=== PATIENT | female | born 1945 | race Caucasian/White ===

== ENCOUNTER 2021-06-01 17:22 | Emergency (ER) | payer MEDICARE, SELFPAY ==
--- NOTE | ~2021-06-01 | XR_ITS ---
EXAMINATION: CHEST X-RAY AND LEFT FOOT. CLINICAL INFORMATION: Left great toe pain and swelling. COMPARISON: None TECHNIQUE: Left foot 3 views. Chest one view. FINDINGS: CHEST: The lungs are hypoexpanded with patchy opacity seen along the lingula and the right midlung. Rest of lungs are clear. The heart size and pulmonary vascularity is normal. There is moderate spondylosis dorsal spine. LEFT FOOT: There is diffuse osteopenia. No acute fracture or dislocation seen. The ankle mortise and subtalar joints are normal. There is a small calcaneal heel enthesophyte. There is mild left foot soft tissue swelling. XR/XR foot LT 2V IMPRESSION: Hypoexpanded lungs with patchy opacity left lingula and right midlung question developing infiltrate. Significant osteopenia without fracture. However there is mild left foot soft tissue swelling. Question reflux sympathetic dystrophy from nonuse.
--- NOTE | ~2021-06-01 | XR_ITS ---
EXAMINATION: CHEST X-RAY AND LEFT FOOT. CLINICAL INFORMATION: Left great toe pain and swelling. COMPARISON: None TECHNIQUE: Left foot 3 views. Chest one view. FINDINGS: CHEST: The lungs are hypoexpanded with patchy opacity seen along the lingula and the right midlung. Rest of lungs are clear. The heart size and pulmonary vascularity is normal. There is moderate spondylosis dorsal spine. LEFT FOOT: There is diffuse osteopenia. No acute fracture or dislocation seen. The ankle mortise and subtalar joints are normal. There is a small calcaneal heel enthesophyte. There is mild left foot soft tissue swelling. XR/XR chest 1V IMPRESSION: Hypoexpanded lungs with patchy opacity left lingula and right midlung question developing infiltrate. Significant osteopenia without fracture. However there is mild left foot soft tissue swelling. Question reflux sympathetic dystrophy from nonuse.
[2021-06-01 17:36] VITALS: BP 142/98; BP 160/89; PULSE 103; PULSE 108; RESP 20; TEMP 37.7; O2SAT 96; O2SAT 97; BMI 32.9
--- NOTE | 2021-06-01 17:43 | ED_ITS ---
HPI - General Adult General Chief complaint: Skin/Abscess/Foreign Body Stated complaint: foot infection Time Seen by Provider: 06/01/21 17:36 Source: family Mode of arrival: EMS Limitations: altered mental status History of Present Illness HPI narrative: Patient with history of dementia And arthritis comes here with left greater toe inflammation secondary to ingrown toenail for last 1 week for last 2 days patient been having fever temperature 103 degrees patient not vaccinated against COVID denies any cough shortness of breath no abdominal pain no urinary complaints no vomiting no diarrhea Related Data Previous Rx's Medication Instructions Recorded cefuroxime axetil 500 mg tablet 500 mg PO BID #20 tab 06/01/21 doxycycline hyclate 100 mg tablet 100 mg PO BID #20 tab 06/01/21 Allergies Allergy/AdvReac Type Severity Reaction Status Date / Time sertraline Allergy Unknown aggression Verified 08/04/18 00:00 No Known Allergies Allergy Unverified 05/15/20 17:52 [No Known Allergies*] memantine [Namenda] AdvReac Unknown headaches Verified 08/04/18 00:00 Review of Systems Review of Systems: Yes all other systems are reviewed and are negative [facility] Past Medical History Medical History Alzheimer disease Arthritis Dementia Social History Social History Smoked in Last 30 Days: No Use of substances other than those prescribed or required for medical reasons: No Advance Directives: No Advance Directives Information Provided: No Physical Exam Vital Signs: Vital Signs: Last Vital Signs Temp 99.8 F 06/01/21 17:36 Pulse 98 06/01/21 22:46 Resp 16 06/01/21 22:46 BP 146/82 H 06/01/21 22:46 Pulse Ox 100 06/01/21 19:18 Body Mass Index 32.9 Appearance: Alert. And awake with dementia++ Eyes: No pallor or icterus ENT: Pharynx normal. Oral Mucosa moist Neck: Normal inspection. Neck supple. CVS: Normal heart rate and rhythm. Pulses normal. Respiratory: No respiratory distress. Equal air entry bilateral, no wheezing/rales/rhonchi Abdomen: Soft and nontender. Bowel sounds are present, no mass palpable, no CVA tenderness Skin: Skin warm and dry. Normal skin color. Normal skin turgor. Extremities: No lower extremity edema. No calf tenderness slight erythema of left greater toe with ingrown nail no significant pus discharge no fluctuancy Neuro: Oriented X 1. No motor deficit. Medical Decision Making MDM Narrative Medical decision making narrative: Patient with chronic lactic acidosis a normal procalcitonin levels afebrile in the ER with minor cellulitis of left greater toe with ingrown toenail no cough but chest x-ray showed slight lingular infiltrate. Patient vitals are stable, patient received a dose of Zosyn in the ER will discharge patient home on Ceftin and doxycycline for cellulitis possible pneumonia Lab Data Lab results reviewed: Yes I reviewed the patient's lab results. Result diagrams: 06/01/21 18:47 06/01/21 21:19 Labs: Lab Results 06/01/21 06/01/21 06/01/21 Range/Units 18:41 18:47 18:47 WBC 10.9 H (4.8-10.8) X10*3/uL RBC 4.75 (4.20-5.50) X10*6/uL Hgb 14.7 (12.0-16.0) g/dl Hct 44.0 (37-47) % MCV 92.6 (80-98) fL MCH 30.9 (27.0-33.0) pg MCHC 33.4 (31.0-35.0) g/dl RDW 14.0 (11.0-16.0) % Plt Count 207 (160-400) X10*3/uL MPV 9.9 (9.4-12.3) fL Immature Gran % (Auto) 0.2 (0.0-0.4) % Neut % (Auto) 75.2 H (45-73) % Lymph % (Auto) 15.4 L (20-40) % [place] % (Auto) 7.9 (2-11) % Eos % (Auto) 1.0 (0-4) % Baso % (Auto) 0.3 (0-2) % Lymph # (Auto) 1.7 (1.2-4.9) X10*3/uL [place] # (Auto) 0.9 (0.1-1.2) X10*3/uL Eos # (Auto) 0.1 (0.0-0.4) X10*3/uL Baso # (Auto) 0.0 (0.0-0.2) X10*3/uL Abs Immat Gran (auto) 0.02 (0.00-0.03) X10*3/uL Absolute Neuts (auto) 8.2 (2.0-8.3) X10*3/uL Absolute Nucleated RBC 0.000 (0.0-0.012) X10*3/uL Nucleated RBC % (auto) 0.0 (0.0-0.2) /100WBC Sodium (135-145) mmol/L Potassium (3.3-5.1) mmol/L Chloride (96-108) mmol/L Carbon Dioxide (22-29) mmol/L Anion Gap (12-20) BUN (9-16) mg/dL Creatinine (0.5-1.4) mg/dL Estim Creat Clear Calc Estimated GFR Random Glucose (60-115) mg/dL Lactic Acid 2.6 H* (0.5-2.0) mmol/L Lactic Acid Fup @ 2Hr (0.5-2.0) mmol/L Calcium (8.4-10.2) mg/dL Total Bilirubin (0.0-1.0) mg/dL AST (5-31) U/L ALT (0-31) U/L Alkaline Phosphatase (39-117) U/L Total Protein (6.5-8.0) g/dL Albumin (3.5-5.0) g/dL Procalcitonin ng/mL Urine Color Urine Appearance Urine pH (5.0-8.0) Ur Specific [place] (1.005-1.025) Urine Protein (NEG-TRACE) MG/DL Urine Glucose (UA) (NEG) MG/DL Urine Ketones (NEG) MG/DL Urine Blood (NEG) Urine Nitrite (NEG) Ur Leukocyte Esterase (NEG) COVID-19 (GUNNAR) Negative (Negative) COVID-19 Clin Com See Note 06/01/21 06/01/21 06/01/21 Range/Units 19:27 21:19 21:19 WBC (4.8-10.8) X10*3/uL RBC (4.20-5.50) X10*6/uL Hgb (12.0-16.0) g/dl Hct (37-47) % MCV (80-98) fL MCH (27.0-33.0) pg MCHC (31.0-35.0) g/dl RDW (11.0-16.0) % Plt Count (160-400) X10*3/uL MPV (9.4-12.3) fL Immature Gran % (Auto) (0.0-0.4) % Neut % (Auto) (45-73) % Lymph % (Auto) (20-40) % [place] % (Auto) (2-11) % Eos % (Auto) (0-4) % Baso % (Auto) (0-2) % Lymph # (Auto) (1.2-4.9) X10*3/uL [place] # (Auto) (0.1-1.2) X10*3/uL Eos # (Auto) (0.0-0.4) X10*3/uL Baso # (Auto) (0.0-0.2) X10*3/uL Abs Immat Gran (auto) (0.00-0.03) X10*3/uL Absolute Neuts (auto) (2.0-8.3) X10*3/uL Absolute Nucleated RBC (0.0-0.012) X10*3/uL Nucleated RBC % (auto) (0.0-0.2) /100WBC Sodium 140 (135-145) mmol/L Potassium 4.1 (3.3-5.1) mmol/L Chloride 107 (96-108) mmol/L Carbon Dioxide 24 (22-29) mmol/L Anion Gap 13 (12-20) BUN 6 L (9-16) mg/dL Creatinine 0.57 (0.5-1.4) mg/dL Estim Creat Clear Calc 83.1 Estimated GFR > 60 Random Glucose 129 H (60-115) mg/dL Lactic Acid (0.5-2.0) mmol/L Lactic Acid Fup @ 2Hr 2.3 H* (0.5-2.0) mmol/L Calcium 8.4 (8.4-10.2) mg/dL Total Bilirubin 0.4 (0.0-1.0) mg/dL AST 57 H (5-31) U/L ALT 29 (0-31) U/L Alkaline Phosphatase 126 H (39-117) U/L Total Protein 6.3 L (6.5-8.0) g/dL Albumin 3.5 (3.5-5.0) g/dL Procalcitonin ng/mL Urine Color YELLOW Urine Appearance CLEAR Urine pH 8.0 (5.0-8.0) Ur Specific [place] 1.015 (1.005-1.025) Urine Protein NEG (NEG-TRACE) MG/DL Urine Glucose (UA) NEG (NEG) MG/DL Urine Ketones NEG (NEG) MG/DL Urine Blood NEG (NEG) Urine Nitrite NEG (NEG) Ur Leukocyte Esterase NEG (NEG) COVID-19 (GUNNAR) (Negative) COVID-19 Clin Com 06/01/21 Range/Units 21:19 WBC (4.8-10.8) X10*3/uL RBC (4.20-5.50) X10*6/uL Hgb (12.0-16.0) g/dl Hct (37-47) % MCV (80-98) fL MCH (27.0-33.0) pg MCHC (31.0-35.0) g/dl RDW (11.0-16.0) % Plt Count (160-400) X10*3/uL MPV (9.4-12.3) fL Immature Gran % (Auto) (0.0-0.4) % Neut % (Auto) (45-73) % Lymph % (Auto) (20-40) % [place] % (Auto) (2-11) % Eos % (Auto) (0-4) % Baso % (Auto) (0-2) % Lymph # (Auto) (1.2-4.9) X10*3/uL [place] # (Auto) (0.1-1.2) X10*3/uL Eos # (Auto) (0.0-0.4) X10*3/uL Baso # (Auto) (0.0-0.2) X10*3/uL Abs Immat Gran (auto) (0.00-0.03) X10*3/uL Absolute Neuts (auto) (2.0-8.3) X10*3/uL Absolute Nucleated RBC (0.0-0.012) X10*3/uL Nucleated RBC % (auto) (0.0-0.2) /100WBC Sodium (135-145) mmol/L Potassium (3.3-5.1) mmol/L Chloride (96-108) mmol/L Carbon Dioxide (22-29) mmol/L Anion Gap (12-20) BUN (9-16) mg/dL Creatinine (0.5-1.4) mg/dL Estim Creat Clear Calc Estimated GFR Random Glucose (60-115) mg/dL Lactic Acid (0.5-2.0) mmol/L Lactic Acid Fup @ 2Hr (0.5-2.0) mmol/L Calcium (8.4-10.2) mg/dL Total Bilirubin (0.0-1.0) mg/dL AST (5-31) U/L ALT (0-31) U/L Alkaline Phosphatase (39-117) U/L Total Protein (6.5-8.0) g/dL Albumin (3.5-5.0) g/dL Procalcitonin 0.09 ng/mL Urine Color Urine Appearance Urine pH (5.0-8.0) Ur Specific [place] (1.005-1.025) Urine Protein (NEG-TRACE) MG/DL Urine Glucose (UA) (NEG) MG/DL Urine Ketones (NEG) MG/DL Urine Blood (NEG) Urine Nitrite (NEG) Ur Leukocyte Esterase (NEG) COVID-19 (GUNNAR) (Negative) COVID-19 Clin Com Discharge Plan Discharge Clinical Impression: Cellulitis Qualifiers: Site of cellulitis: extremity Site of cellulitis of extremity: toe Laterality: left Qualified Code(s): L03.032 - Cellulitis of left toe Patient Disposition: Home, Self-Care Instructions: Cellulitis (ED) Additional Instructions: Local care as advised Tylenol for fever Take antibiotic as prescribed Report to the ER if increased shortness of breath/cough/high fever Prescriptions: New cefuroxime axetil 500 mg tablet 500 mg PO BID Qty: 20 RF: 0 doxycycline hyclate 100 mg tablet 100 mg PO BID Qty: 20 RF: 0 Interventions: ED Discharge Assessment Last Done: 06/01/21 23:36 Discharge Date/Time: 06/01/21 23:38
[2021-06-01 18:52] LABS: MANUAL DIFF FLAG NO
[2021-06-01 18:59] LABS: Basophils Percent Auto 0.3 % (0-2); Eosinophils Absolute Auto 0.1 X10*3/uL (0.0-0.4); Hemoglobin 14.7 g/dl (12.0-16.0); Imm Gran Abs Auto 0.02 X10*3/uL (0.00-0.03); Imm Gran Pct Auto 0.2 % (0.0-0.4); Lymphocytes Absolute Auto 1.7 X10*3/uL (1.2-4.9); Lymphocytes Percent Auto 15.4 % (20-40); Mean Corpuscular HGB Conc 33.4 g/dl (31.0-35.0); Mean Corpuscular Hemoglobin 30.9 pg (27.0-33.0); Mean Corpuscular Volume 92.6 fL (80-98); Mean Platelet Volume 9.9 fL (9.4-12.3); Monocytes Absolute Auto 0.9 X10*3/uL (0.1-1.2); Monocytes Percent Auto 7.9 % (2-11); Neutrophils Absolute Auto 8.2 X10*3/uL (2.0-8.3); Neutrophils Percent Auto 75.2 % (45-73); Platelet Count 207 X10*3/uL (160-400); Red Blood Count 4.75 X10*6/uL (4.20-5.50); White Blood Count 10.9 X10*3/uL (4.8-10.8)
[2021-06-01 19:08] LABS: Lactic Acid 2.6 mmol/L (0.5-2.0)
[2021-06-01 19:14] LABS: COVID-19 Test Negative (Negative); IDNOW Serial# 9DD0AD1C
[2021-06-01 19:18] VITALS: BP 145/91; PULSE 95; RESP 20; O2SAT 100
[2021-06-01] MEDS: 0.9 % Sodium Chloride 1,000 ML 999 ML IVCONT (19:28)
--- NOTE | 2021-06-01 19:32 | PC.NURSE ---
Urine obtained via straight cath. PT tolerated procedure well. Labs and second set of cultures obtained. Fluids hung. PT is resting in bed quietly, daughter in room with PT.
[2021-06-01] MEDS: Piperacillin Sodium/Tazobactam 3.375 GM in 0.9 % Sodium Chloride 50 ML IV (19:38)
--- NOTE | 2021-06-01 19:39 | PC.NURSE ---
Antibiotics hung per OCT.
[2021-06-01 19:40] LABS: Appearance Urine CLEAR; Color Urine YELLOW; Glucose Urine UA NEG (NEG); Leukocyte Esterase Urine NEG (NEG); Nitrite Urine NEG (NEG); Specific Gravity - Urine 1.015 (1.005-1.025); Urine Blood NEG (NEG); Urine Ketones NEG (NEG); Urine Protein NEG (NEG-TRACE)
[2021-06-01 20:50] LABS: Reflex Lactate? Lactic Acid Added
[2021-06-01 21:40] LABS: ~Lactic Acid-LAB USE ONLY 2.3 mmol/L (0.5-2.0)
[2021-06-01 21:45] LABS: Alanine Aminotransferase 29 U/L (0-31); Albumin Level 3.5 g/dL (3.5-5.0); Alkaline Phosphatase 126 U/L (39-117); Anion Gap 13 (12-20); Aspartate Amino Transferase 57 U/L (5-31); Bilirubin Total 0.4 mg/dL (0.0-1.0); Blood Urea Nitrogen 6 mg/dL (9-16); Calcium 8.4 mg/dL (8.4-10.2); Carbon Dioxide 24 mmol/L (22-29); Chloride 107 mmol/L (96-108); Creatinine Clr Calc Pharmacy 83.1; Estimated Glomerular Filt Rate > 60; Glucose Random 129 mg/dL (60-115); Potassium 4.1 mmol/L (3.3-5.1); Sodium 140 mmol/L (135-145); Total Protein 6.3 g/dL (6.5-8.0)
[2021-06-01 22:08] LABS: Procalcitonin 0.09 ng/mL
[2021-06-01 22:46] VITALS: BP 146/82; PULSE 98; RESP 16
--- NOTE | 2021-06-01 22:51 | PC.NURSE ---
This RN at bedside with medical interpreter for discharge instructions. IV removed, VSS. Per family at bedside, pt requires ambulance transportation home. Computer [employer] arranging transfer. Family provided with discharge paperwork, awaiting transportation home.
[2021-06-01 23:22] LABS: Reflex Lactate? 2 Y
== END 2021-06-01 23:38 | disposition home or self-care (01) ==
PROVIDERS: Emergency Provider Internal Medicine
DX: L03.032 Cellulitis of left toe (principal); Z20.822 Contact with and (suspected) exposure to COVID-19; Z79.899 Other long term (current) drug therapy
CPT/HCPCS: 36415; 71045; 73620; 80053; 81003; 83605; 84145; 85025; 87040; 87635; 96365; 99284; 99285; J2543

== ENCOUNTER 2021-10-09 17:59 | Emergency (ER) | payer MEDICARE, SELFPAY ==
--- NOTE | ~2021-10-09 | CT_ITS ---
EXAMINATION: CT ABDOMEN AND PELVIS WITHOUT CONTRAST CLINICAL INFORMATION: Reason for Exam llq pain . COMPARISON: No pertinent prior studies are available for comparison. TECHNIQUE: Multidetector volumetric imaging was performed from the superior aspect of the liver through the pubic symphysis without contrast per renal stone protocol. Sagittal and coronal reformatted images were obtained on the technologist workstation. This CT examination was performed using dose optimization techniques as appropriate, variously including the following: *Automated exposure control *Adjustment of mA and/or kV according to patient size (this includes techniques or standardized protocols for targeted exams where dose is matched to indication/reason for exam; i.e. extremities or head) *Use of iterative reconstruction technique DLP: 827 mGy-cm. FINDINGS: LUNG BASES: The visualized lung bases are unremarkable. LIVER, GALLBLADDER, BILIARY TREE: Mild diffuse fatty infiltration more so in the left lobe of the liver difficult to define further on this noncontrast study. The gallbladder is unremarkable with no evidence of radiopaque gallstones, gallbladder wall thickening, or obvious pericholecystic inflammatory changes. PANCREAS: Unremarkable. SPLEEN: Unremarkable. ADRENAL GLANDS: Unremarkable. KIDNEYS AND URETERS: The kidneys are normal in size, shape, and attenuation. No hydronephrosis, hydroureter, or calculi seen. No perinephric stranding. BLADDER: Unremarkable. GASTROINTESTINAL TRACT: Colon is redundant. A few scattered colonic diverticula are seen but there is no colonic wall thickening or focal pericolonic inflammatory change to suggest diverticulitis. Visualized small bowel unremarkable ABDOMINAL WALL: No significant hernia is appreciated. LYMPHOVASCULAR STRUCTURES: Mild vascular calcification within the aorta iliac system.. PELVIC VISCERA: Unremarkable. OSSEUS STRUCTURES: Multilevel degenerative changes in the spine but no acute bony abnormality. CT/CT abdomen pelvis wo con IMPRESSION: Chronic appearing changes as described above. Incidental fatty infiltration more so in the left lobe the liver is noted. No other acute abnormality seen..
[2021-10-09 18:09] VITALS: BP 140/70; PULSE 90; O2SAT 96; O2SAT 98
--- NOTE | 2021-10-09 18:21 | ED.ABDPAIN ---
HPI - Abdominal Pain General Chief Complaint: Abdominal Pain Stated Complaint: abd tenderness Time Seen by Provider: 10/09/21 18:21 Source: patient Mode of arrival: ambulatory Limitations: no limitations History of Present Illness HPI narrative: Elizabeth patient with history of advanced dementia, nonverbal brought by her daughter for increased agitation for last few days patient was seen by her PCP noticed to have pain in left lower abdomen, which is according to her daughter been there for last 2-3 days patient was also for seen by nurse practitioner 1 week ago and thought had infection of the left ear prescribed amoxicillin but patient has not taken it yesterday when she took the 1st dose. No fever no cough no shortness of breath patient been eating otherwise normally no diarrhea patient had the labs done by primary care doctor showed normal chemistry CBC was not done Related Data Previous Rx's Medication Instructions Recorded cefuroxime axetil 500 mg tablet 500 mg PO BID #20 tab 06/01/21 doxycycline hyclate 100 mg tablet 100 mg PO BID #20 tab 06/01/21 ibuprofen 600 mg tablet 600 mg PO Q6H PRN #20 tab 10/09/21 Allergies Allergy/AdvReac Type Severity Reaction Status Date / Time sertraline Allergy Unknown aggression Verified 08/04/18 00:00 No Known Allergies Allergy Unverified 05/15/20 17:52 [No Known Allergies*] memantine [Namenda] AdvReac Unknown headaches Verified 08/04/18 00:00 Review of Systems Review of Systems Yes all other systems are reviewed and are negative Physical Exam Vital Signs: Vital Signs: Last Vital Signs Pulse 84 10/09/21 21:20 Resp 6 L 10/09/21 18:49 BP 154/91 H 10/09/21 18:49 Pulse Ox 97 10/09/21 21:20 BMI result Body Mass Index 0.2 Appearance: Alert. Oriented X3. No acute distress. non verbal Eyes: PERRLA, No Nystagmus ENT: Pharynx normal. Oral Mucosa moist left TM inflammed and bulging Neck: Normal inspection. Neck supple. CVS: Normal heart rate and rhythm. Pulses normal. Respiratory: No respiratory distress. Equal air entry bilateral, no wheezing/rales/rhonchi Abdomen: Soft anddeep tenderness LLQ no rebound tenderness or guarding Bowel sounds are present, no mass palpable, no CVA tenderness Skin: Skin warm and dry. Normal skin color. Normal skin turgor. Extremities: No lower extremity edema. No calf tenderness Neuro: Alert and awake nonverbal moving all 4 extremities MDM - Abdominal Pain MDM Narrative Medical decision making narrative: Patient with left otitis media with questionable left lower abdominal pain workup is negative for any infection CT scan negative for diverticulitis. Unable to get the UA family does not want foot straight cath for urine patient already on amoxicillin for otitis media which she started yesterday will advise daughter to continue amoxicillin 500 mg 3 times a day and ibuprofen for pain. Will discharge patient home. Lab Data Attestation: I reviewed the patient's lab results. Result diagrams: 10/09/21 20:13 10/09/21 20:13 Labs: Lab Results 10/09/21 10/09/21 10/09/21 Range/Units 20:13 20:13 20:13 WBC 9.3 (4.8-10.8) X10*3/uL RBC 4.54 (4.20-5.50) X10*6/uL Hgb 13.9 (12.0-16.0) g/dl Hct 42.4 (37.0-47.0) % MCV 93.4 (80.0-98.0) fL MCH 30.6 (27.0-33.0) pg MCHC 32.8 (31.0-35.0) g/dl RDW 13.4 (11.0-16.0) % Plt Count 173 (160-400) X10*3/uL MPV 9.1 L (9.4-12.3) fL Immature Gran % (Auto) 0.2 (0.0-0.4) % Neut % (Auto) 67.3 (45-73) % Lymph % (Auto) 23.6 (20-40) % [place] % (Auto) 6.9 (2-11) % Eos % (Auto) 1.7 (0-4) % Baso % (Auto) 0.3 (0-2) % Lymph # (Auto) 2.2 (1.2-4.9) X10*3/uL [place] # (Auto) 0.6 (0.1-1.2) X10*3/uL Eos # (Auto) 0.2 (0.0-0.4) X10*3/uL Baso # (Auto) 0.0 (0.0-0.2) X10*3/uL Abs Immat Gran (auto) 0.02 (0.00-0.03) X10*3/uL Absolute Neuts (auto) 6.2 (2.0-8.3) x10*3/uL Absolute Nucleated RBC 0.000 (0.0-0.012) X10*3/uL Nucleated RBC % (auto) 0.0 (0.0-0.2) /100WBC Sodium 137 (135-145) mmol/L Potassium 4.5 (3.3-5.1) mmol/L Chloride 105 (96-108) mmol/L Carbon Dioxide 25 (22-29) mmol/L Anion Gap 12 (12-20) BUN 5 L (9-16) mg/dL Creatinine 0.64 (0.5-1.4) mg/dL Estim Creat Clear Calc 79.1 Estimated GFR > 60 Random Glucose 96 (60-115) mg/dL Lactic Acid 1.4 (0.5-2.0) mmol/L Calcium 9.3 D (8.4-10.2) mg/dL Total Bilirubin 0.4 (0.0-1.0) mg/dL AST 35 H (5-31) U/L ALT 16 (0-31) U/L Alkaline Phosphatase 112 (39-117) U/L Total Protein 6.5 (6.5-8.0) g/dL Albumin 3.6 (3.5-5.0) g/dL Lipase 48 (8-78) U/L COVID-19 (GUNNAR) (Negative) COVID-19 Clin Com 10/09/21 Range/Units 20:13 WBC (4.8-10.8) X10*3/uL RBC (4.20-5.50) X10*6/uL Hgb (12.0-16.0) g/dl Hct (37.0-47.0) % MCV (80.0-98.0) fL MCH (27.0-33.0) pg MCHC (31.0-35.0) g/dl RDW (11.0-16.0) % Plt Count (160-400) X10*3/uL MPV (9.4-12.3) fL Immature Gran % (Auto) (0.0-0.4) % Neut % (Auto) (45-73) % Lymph % (Auto) (20-40) % [place] % (Auto) (2-11) % Eos % (Auto) (0-4) % Baso % (Auto) (0-2) % Lymph # (Auto) (1.2-4.9) X10*3/uL [place] # (Auto) (0.1-1.2) X10*3/uL Eos # (Auto) (0.0-0.4) X10*3/uL Baso # (Auto) (0.0-0.2) X10*3/uL Abs Immat Gran (auto) (0.00-0.03) X10*3/uL Absolute Neuts (auto) (2.0-8.3) x10*3/uL Absolute Nucleated RBC (0.0-0.012) X10*3/uL Nucleated RBC % (auto) (0.0-0.2) /100WBC Sodium (135-145) mmol/L Potassium (3.3-5.1) mmol/L Chloride (96-108) mmol/L Carbon Dioxide (22-29) mmol/L Anion Gap (12-20) BUN (9-16) mg/dL Creatinine (0.5-1.4) mg/dL Estim Creat Clear Calc Estimated GFR Random Glucose (60-115) mg/dL Lactic Acid (0.5-2.0) mmol/L Calcium (8.4-10.2) mg/dL Total Bilirubin (0.0-1.0) mg/dL AST (5-31) U/L ALT (0-31) U/L Alkaline Phosphatase (39-117) U/L Total Protein (6.5-8.0) g/dL Albumin (3.5-5.0) g/dL Lipase (8-78) U/L COVID-19 (GUNNAR) Negative (Negative) COVID-19 Clin Com See Note Discharge Plan Discharge Clinical Impression: Acute left otitis media Patient Disposition: Home, Self-Care Instructions: Ear Infection (ED) Additional Instructions: Continue antibiotic as prescribed by your PCP Ibuprofen for pain Prescriptions: New ibuprofen 600 mg tablet 600 mg PO Q6H PRN (Reason: pain) Qty: 20 0RF No Action cefuroxime axetil 500 mg tablet 500 mg PO BID Qty: 20 0RF doxycycline hyclate 100 mg tablet 100 mg PO BID Qty: 20 0RF PMFSH Past Medical History Medical History Alzheimer disease Arthritis Dementia Social History Social History Advance Directives: No Advance Directives Information Provided: No
[2021-10-09 18:49] VITALS: BP 154/91; PULSE 93; RESP 6; O2SAT 99
[2021-10-09 20:19] LABS: MANUAL DIFF FLAG NO
[2021-10-09 20:27] LABS: Basophils Percent Auto 0.3 % (0-2); Eosinophils Absolute Auto 0.2 X10*3/uL (0.0-0.4); Eosinophils Percent Auto 1.7 % (0-4); Hematocrit 42.4 % (37.0-47.0); Hemoglobin 13.9 g/dl (12.0-16.0); Imm Gran Abs Auto 0.02 X10*3/uL (0.00-0.03); Imm Gran Pct Auto 0.2 % (0.0-0.4); Lymphocytes Absolute Auto 2.2 X10*3/uL (1.2-4.9); Lymphocytes Percent Auto 23.6 % (20-40); Mean Corpuscular HGB Conc 32.8 g/dl (31.0-35.0); Mean Corpuscular Hemoglobin 30.6 pg (27.0-33.0); Mean Corpuscular Volume 93.4 fL (80.0-98.0); Mean Platelet Volume 9.1 fL (9.4-12.3); Monocytes Absolute Auto 0.6 X10*3/uL (0.1-1.2); Monocytes Percent Auto 6.9 % (2-11); Neutrophils Absolute Auto 6.2 x10*3/uL (2.0-8.3); Neutrophils Percent Auto 67.3 % (45-73); Platelet Count 173 X10*3/uL (160-400); Red Blood Count 4.54 X10*6/uL (4.20-5.50); Red Cell Distribution Width 13.4 % (11.0-16.0); White Blood Count 9.3 X10*3/uL (4.8-10.8)
[2021-10-09 20:32] LABS: Lactic Acid 1.4 mmol/L (0.5-2.0)
[2021-10-09 20:37] LABS: Alanine Aminotransferase 16 U/L (0-31); Albumin Level 3.6 g/dL (3.5-5.0); Alkaline Phosphatase 112 U/L (39-117); Anion Gap 12 (12-20); Aspartate Amino Transferase 35 U/L (5-31); Bilirubin Total 0.4 mg/dL (0.0-1.0); Blood Urea Nitrogen 5 mg/dL (9-16); COVID-19 Test Negative (Negative); Calcium 9.3 mg/dL (8.4-10.2); Carbon Dioxide 25 mmol/L (22-29); Chloride 105 mmol/L (96-108); Creatinine Clr Calc Pharmacy 79.1; Estimated Glomerular Filt Rate > 60; Glucose Random 96 mg/dL (60-115); Lipase 48 U/L (8-78); Potassium 4.5 mmol/L (3.3-5.1); Sodium 137 mmol/L (135-145); Total Protein 6.5 g/dL (6.5-8.0)
[2021-10-09 21:20] VITALS: PULSE 84; O2SAT 97
[2021-10-09] MEDS: Amoxicillin/Potassium Clav 875 MG TABLET PO (21:22)
[2021-10-09 22:10] VITALS: BP 143/76; PULSE 76; RESP 16; O2SAT 95
== END 2021-10-09 23:09 | disposition home or self-care (01) ==
PROVIDERS: Emergency Provider Internal Medicine; PCP Nurse Practitioner
DX: H66.92 Otitis media, unspecified, left ear (principal); R10.32 Left lower quadrant pain; R45.1 Restlessness and agitation; Z20.822 Contact with and (suspected) exposure to COVID-19; G30.9 Alzheimer's disease, unspecified; F02.80 Dementia in other diseases classified elsewhere, unspecified severity, without behavioral disturbance, psychotic disturbance, mood disturbance, and anxiety
CPT/HCPCS: 36415; 74176; 80053; 83605; 83690; 85025; 87635; 99284

== ENCOUNTER 2022-08-15 10:14 | Emergency (ER) | payer MEDICARE, SELFPAY ==
[2022-08-15 10:18] VITALS: BP 134/82; PULSE 81; RESP 17; TEMP 37.4; O2SAT 95; BMI 29.7
[2022-08-15 11:18] LABS: Influenza A PCR POSITIVE (Negative); Influenza B PCR NEGATIVE (Negative); Resp Syncy Virus RNA Qual PCR NEGATIVE (Negative); SARS COV2 PCR INHOUSE NEGATIVE (Negative)
== END 2022-08-15 14:57 | disposition left against medical advice (07) ==
PROVIDERS: Emergency Provider Emergency Medicine
DX: J18.9 Pneumonia, unspecified organism (principal); Z20.822 Contact with and (suspected) exposure to COVID-19
CPT/HCPCS: 0241U; 99281; 99282

== ENCOUNTER 2024-12-10 00:14 | Emergency (ER) | payer MEDICARE, SELFPAY ==
--- NOTE | ~2024-12-10 | XR_ITS ---
CLINICAL HISTORY: sob 1 view chest x-ray Comparison: None Findings: No consolidation or effusion. Similar prominent/enlarged cardiac silhouette. No acute fracture. 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 IMPRESSION: 1. No acute findings. This document has been electronically signed by: Sunday Cifuentes MD on 12/10/2024 03:15:56
--- NOTE | 2024-12-10 00:19 | ED_ITS ---
HPI - Altered Mental Status General Chief Complaint: Anxiety Stated Complaint: Increased agitation Time Seen by Provider: 12/10/24 00:19 Source: family Mode of arrival: EMS Limitations: other (Nonverbal) History of Present Illness ED Provider: HPI narrative: Patient with dementia nonverbal nonambulatory with history of anxiety lives with her daughter somehow ran out of her Klonopin for last 2 days pharmacy gave her 2 tablets today which she took at 15:00 and have the dose at 20:00 patient's grandson called the EMS as patient was getting very anxious daughter give her DuoNeb treatment as patient was wheezing/hyperventilating when EMS came patient is tachycardic hence brought to the ER on arrival heart rate is 115 regular Related Data Previous Rx's ?Medication ?Instructions ?Recorded cefuroxime axetil 500 mg tablet 500 mg PO BID #20 tabs 06/01/21 doxycycline hyclate 100 mg tablet 100 mg PO BID #20 tabs 06/01/21 ibuprofen 600 mg tablet 600 mg PO Q6H PRN pain #20 tabs 10/09/21 cefuroxime axetil 500 mg tablet 500 mg PO BID 7 days #14 tabs 12/10/24 Allergies Allergy/AdvReac Type Severity Reaction Status Date / Time sertraline Allergy Unknown aggression Verified 12/10/24 00:26 No Known Allergies Allergy Verified 12/10/24 00:26 [No Known Allergies*] memantine [Namenda] AdvReac Unknown headaches Verified 12/10/24 00:26 Review of Systems 2 Review of Systems: Yes Unobtainable due to mental status (Dementia nonverbal) [facility] Past Medical History Medical History Arthritis Alzheimer disease Dementia Social History Social History Smoked in Last 30 Days: No Use of substances other than those prescribed or required for medical reasons: No Advance Directives: No Advance Directives Information Provided: Yes Do you have a plan to hurt others: No Plan Physical Exam ED Vital Signs: Vital Signs - 24 hr 12/10/24 00:21 12/10/24 01:22 12/10/24 02:43 Temperature 99.0 F 96.8 F 100.1 F Pulse Rate 115 H 108 H 101 H Respiratory Rate 20 18 18 Blood Pressure 154/85 H 148/88 H 145/73 H Pulse Oximetry 93 93 93 Oxygen Delivery Method Room Air Room Air Room Air BMI result Body Mass Index 26.0 Appearance: Alert. Nonverbal, demented No acute distress. Eyes: PERRLA, No Nystagmus ENT: Pharynx normal. Oral Mucosa moist Neck: Normal inspection. Neck supple. CVS: Tachycardia with regular rhythm. Pulses normal. Respiratory: No respiratory distress. Equal air entry bilateral, no wheezing/rales/rhonchi Abdomen: Soft and nontender. Bowel sounds are present, no mass palpable, no CVA tenderness Skin: Skin warm and dry. Normal skin color. Normal skin turgor. Extremities: No lower extremity edema. No calf tenderness Neuro: Alert and awake at baseline moving all 4 extremities Medications Administered Discontinued Medications Generic Name Dose Route Start Last Admin Trade Name Freq PRN Reason Stop Dose Admin Acetaminophen 650 mg 12/10/24 03:34 12/10/24 03:37 Acetaminophen Oral Liquid 650 Mg/20.3 Ml Solution PO 12/10/24 03:35 650 mg ONCE ONE Administration Medical Decision Making Medical Decision Making [facility] Narrative: Patient with low-grade fever with tachycardia with anxiety found out to be having UTI she been coughing at home earlier chest x-ray is negative will prescribe cefuroxime 500 mg twice a day for UTI and bronchitis no acute ischemic changes in the EKG no delta elevation of troponin patient did not have any chest pain at home advised to follow with PCP Differential Diagnosis Differential Diagnoses: The differential diagnosis associated with the presentation includes Anxiety/dehydration/infection Lab Data [facility] Lab Attestation statement: I reviewed the patient's lab results. 12/10/24 01:20 12/10/24 01:20 Labs: Lab Results 12/10/24 12/10/24 12/10/24 Range/Units 01:20 02:38 03:09 WBC 15.7 H (4.8-10.8) X10*3/uL RBC 4.48 (4.20-5.50) X10*6/uL Hgb 13.5 (12.0-16.0) g/dl Hct 39.6 (37.0-47.0) % MCV 88.4 (80.0-98.0) fL MCH 30.1 (27.0-33.0) pg MCHC 34.1 (31.0-35.0) g/dl RDW 12.7 (11.0-16.0) % Plt Count 111 L D (160-400) X10*3/uL MPV 9.3 L (9.4-12.3) fL Immature Gran % (Auto) 0.5 H (0.0-0.4) % Neut % (Auto) 88.1 H (45-73) % Lymph % (Auto) 6.2 L (20-40) % Stokes % (Auto) 4.9 (2-11) % Eos % (Auto) 0.1 (0-4) % Baso % (Auto) 0.2 (0-2) % Lymph # (Auto) 1.0 L (1.2-4.9) X10*3/uL Stokes # (Auto) 0.8 (0.1-1.2) X10*3/uL Eos # (Auto) 0.0 (0.0-0.4) X10*3/uL Baso # (Auto) 0.0 (0.0-0.2) X10*3/uL Abs Immat Gran (auto) 0.08 H (0.00-0.03) X10*3/uL Absolute Neuts (auto) 13.8 H (2.0-8.3) x10*3/uL Absolute Nucleated RBC 0.000 (0.0-0.012) X10*3/uL Nucleated RBC % (auto) 0.0 (0.0-0.2) /100WBC Sodium 136 (135-145) mmol/L Potassium 4.2 (3.3-5.1) mmol/L Chloride 104 (96-108) mmol/L Carbon Dioxide 20 L (22-29) mmol/L Anion Gap 16 (12-20) BUN 13 (9-16) mg/dL Creatinine 0.66 (0.5-1.4) mg/dL Estim Creat Clear Calc 59.9 Estimated GFR > 60 Random Glucose 205 H (60-115) mg/dL Calcium 9.3 (8.4-10.2) mg/dL Total Bilirubin 0.9 (0.0-1.0) mg/dL AST 41 H (5-31) U/L ALT 21 (0-31) U/L Alkaline Phosphatase 92 (39-117) U/L Troponin I High Sens 137.2 H* 131.4 H* (<3.5-17.0) ng/L Total Protein 6.4 L (6.5-8.0) g/dL Albumin 3.4 L (3.5-5.0) g/dL Urine Color Urine Appearance Urine pH (5.0-9.0) Ur Specific [place] (1.005-1.025) Urine Protein (Neg-Trace) mg/dL Urine Glucose (UA) (Negative) mg/dL Urine Ketones (Negative) mg/dL Urine Blood (Negative) Urine Nitrite (Negative) Ur Leukocyte Esterase (Negative) Urine RBC (0-2) /HPF Urine WBC (0-5) /HPF Ur Squamous Epith Cells (0-2) /HPF Urine Bacteria (None Seen) Hyaline Casts (0-2) /LPF Influenza Type A (PCR) NEGATIVE (Negative) Influenza Type B (PCR) NEGATIVE (Negative) RSV RNA Qual (PCR) NEGATIVE (Negative) SARS-CoV-2 RNA (RT-PCR) NEGATIVE (Negative) 12/10/24 Range/Units 03:22 WBC (4.8-10.8) X10*3/uL RBC (4.20-5.50) X10*6/uL Hgb (12.0-16.0) g/dl Hct (37.0-47.0) % MCV (80.0-98.0) fL MCH (27.0-33.0) pg MCHC (31.0-35.0) g/dl RDW (11.0-16.0) % Plt Count (160-400) X10*3/uL MPV (9.4-12.3) fL Immature Gran % (Auto) (0.0-0.4) % Neut % (Auto) (45-73) % Lymph % (Auto) (20-40) % Stokes % (Auto) (2-11) % Eos % (Auto) (0-4) % Baso % (Auto) (0-2) % Lymph # (Auto) (1.2-4.9) X10*3/uL Stokes # (Auto) (0.1-1.2) X10*3/uL Eos # (Auto) (0.0-0.4) X10*3/uL Baso # (Auto) (0.0-0.2) X10*3/uL Abs Immat Gran (auto) (0.00-0.03) X10*3/uL Absolute Neuts (auto) (2.0-8.3) x10*3/uL Absolute Nucleated RBC (0.0-0.012) X10*3/uL Nucleated RBC % (auto) (0.0-0.2) /100WBC Sodium (135-145) mmol/L Potassium (3.3-5.1) mmol/L Chloride (96-108) mmol/L Carbon Dioxide (22-29) mmol/L Anion Gap (12-20) BUN (9-16) mg/dL Creatinine (0.5-1.4) mg/dL Estim Creat Clear Calc Estimated GFR Random Glucose (60-115) mg/dL Calcium (8.4-10.2) mg/dL Total Bilirubin (0.0-1.0) mg/dL AST (5-31) U/L ALT (0-31) U/L Alkaline Phosphatase (39-117) U/L Troponin I High Sens (<3.5-17.0) ng/L Total Protein (6.5-8.0) g/dL Albumin (3.5-5.0) g/dL Urine Color Yellow Urine Appearance Cloudy Urine pH 6.5 (5.0-9.0) Ur Specific [place] 1.020 (1.005-1.025) Urine Protein 30 (1+) H (Neg-Trace) mg/dL Urine Glucose (UA) 100 H (Negative) mg/dL Urine Ketones Trace (Negative) mg/dL Urine Blood Small (1+) H (Negative) Urine Nitrite Positive H (Negative) Ur Leukocyte Esterase Moderate (2+) H (Negative) Urine RBC 6-10 H (0-2) /HPF Urine WBC >50 H (0-5) /HPF Ur Squamous Epith Cells 0-2 (0-2) /HPF Urine Bacteria 4+ (None Seen) Hyaline Casts 0-2 (0-2) /LPF Influenza Type A (PCR) (Negative) Influenza Type B (PCR) (Negative) RSV RNA Qual (PCR) (Negative) SARS-CoV-2 RNA (RT-PCR) (Negative) Independent Interpretation I performed an independent interpretation of an: EKG Interpretation: Sinus tachycardia heart rate 106 beats per minute no acute STT wave changes no acute ischemia Discharge Plan Discharge Clinical Impression: Acute anxiety, Hyperventilation, Acute UTI Patient Disposition: Home, Self-Care Instructions: Anxiety (ED), Urinary Tract Infection in Older Adults (ED) Additional Instructions: Your patient's plenty of fluids Take medication for anxiety as prescribed by your PCP Antibiotic as prescribed for UTI Tylenol for fever Prescriptions: New cefuroxime axetil 500 mg tablet 500 mg PO BID 7 Days Qty: 14 0RF No Action cefuroxime axetil 500 mg tablet 500 mg PO BID Qty: 20 0RF doxycycline hyclate 100 mg tablet 100 mg PO BID Qty: 20 0RF ibuprofen 600 mg tablet 600 mg PO Q6H PRN (Reason: pain) Qty: 20 0RF Print Language: Chinese
[2024-12-10 00:21] VITALS: BP 154/85; BP 165/90; PULSE 110; PULSE 115; RESP 20; TEMP 37.2; O2SAT 93; O2SAT 94; BMI 26.0
--- NOTE | 2024-12-10 00:45 | ECG_ITS ---
Test Reason : TACHYCARDIA Blood Pressure : */* mmHG Vent. 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
--- OUTSIDE RECORDS SUMMARY | 2024-12-10 00:55 | XMS_ITS | Data Portability ---
Author Organization [employer] [place] [employer] [place] Address [address] [place] [id number] Care Team Providers Care Fire Control Technician B Name Role Phone HIM CCA OTHER Assessment Encounter Date Assessment Date Assessment LastModified by Organization Details LastModified Time 04/13/2023 04/13/2023 I provided real -time medical direction via phone for this encounter, and was available for additional phone based assistance as needed. I have reviewed and agree with the Assessment and Plan as documented by the Server Systems Administrator. Patient's daughter given the opportunity to ask questions as patient is n on verbal. Advised if develops CP/severe SOB/turning blue/uncontrolle d n/v/d or black/bloody emesis or stool/ AMS/ syncope/ hi fever unresponsive to APAP to call 911- daughter verbalized understanding of instructions to the medic [email or web address] Not available 04/13/2023 11:30:29 04/21/2023 04/21/2023 I provided real -time medical direction via phone for this encounter, and was available for additional phone based assistance as needed. I have reviewed and agree with the Assessment and Plan as documented by the Server Systems Administrator. Patient's family given the opportunity to ask questions. Advised they need to follow-up with PCP tomorrow (I contacted [facility] about checking with the patient's family in the am tomorrow and if she needs we can come out for a revisit -however they should have a low threshold for going to the ER where she has rebound COVID) -if develops severe SOB/turning blue/uncontrolle d n/v/d or black/bloody emesis or stool/ AMS/ syncope/ hi fever unresponsive to APAP to call 911- verbalized understanding of instructions [email or web address] Not available 04/21/2023 15:55:54 Plan of Treatment Reminders Order Date Submit Date Provider Last Modified By Organization Details Last Modified Time Details Appointments None recorded. Lab rapid SARS CoV 2 Ag, QL IA, respiratory specimen 11/01/ 2024 11/01/2 024 [email or web address] [facility], [address] [place] [address], [id number] 4 21:30:41 rapid flu (A+B) 2023 024 [email or web address], [address] [place] [address], [id number] 4 21:30:41 rapid SARS CoV 2 Ag, QL IA, respiratory specimen 2022 023 [email or web address] 0 [facility], [address] [place] [address], [id number] 3 12:29:55 rapid flu (A+B) 2022 023 [email or web address] 0 [facility], [address] [place] [address], [id number] 3 12:29:55 rapid SARS CoV 2 Ag, QL IA, respiratory specimen 2022 023 [email or web address] 0 [facility], [address] [place] [address], [id number] 3 11:23:54 rapid flu (A+B) 2022 023 [email or web address] 0 [facility], [address] [place] [address], [id number] 3 11:23:54 BMP, serum or plasma 2022 023 [email or web address] 0 [facility], [address] [place] [address], [id number] 3 11:34:35 Referral None recorded. Procedures None recorded. Surgeries None recorded. Imaging None recorded. Medication Orders benzonatate 100 mg capsule 2024 025 [facility] #[id number], [address] [place], [address], 5 21:40:42 Thick-It oral powder 2023 024 [facility]acy #0373, [address] [place], [address], 4 21:38:13 ipratropium 0.5 mg-albutero l 3 mg (2.5 mg base)/3 mL nebulizatio n soln 2022 023 [email or web address] [facility]/Pharmacy #0373, [address] [place], [address], 3 19:39:35 albuterol sulfate HFA 90 mcg/actuati on aerosol inhaler 2022 023 [facility]armacy #0373, [address] [place], [address], 3 12:34:33 prednisolon e 15 mg/5 mL oral solution 2022 023 [facility]acy #0373, [address] [place], [address], 3 12:34:33 guaifenesin 100 mg/5 mL oral liquid 2022 023 [facility]acy #0373, [address] [place], [address], 3 12:36:02 prednisone 20 mg tablet 2022 023 [email or web address] 0 [facility]armacy #0373, [address] [place], [address], 3 12:40:21 ipratropium 0.5 mg-albutero l 3 mg (2.5 mg base)/3 mL nebulizatio n soln 2022 023 [email or web address] 0 [facility]armacy #0373, [address] [place], [address], 3 12:40:22 Paxlovid 300 mg (150 mg x 2)-100 mg tablets in a dose pack 2022 023 [facility]armacy #0373, [address] [place], [address], 3 11:27:26 benzonatate 200 mg capsule 2022 023 [facility]armacy #[id number], [address] [facility], [place], [address], 3 11:27:24 Patient TargetsNo targets recorded. Patient InstructionsNo instructions recorded. Reason for Referral None Reported. Results Created Date Observation Date Name Description Value Unit Range Abnormal Flag Note LastModifiedBy Organization Detail LastModifiedTime 04/13/2004/13/2023 BMP, serum or plasm a BUN 11 Not Available [facility] [address], [address] [place] [address] 04/13/2023 11:31:35 04/13/20 23 04/13/2023 BMP, serum or plasm a Ca I shahana 1.17 Not Available [facility] - [address], [address] [place] [address] 04/13/2023 11:31:35 04/13/20 23 04/13/2023 BMP, serum or plasm a CRE 0.5 Not Available [facility] [address], [address] [place] [address] 04/13/2023 11:31:35 04/13/20 23 04/13/2023 BMP, serum or plasm a GLU 153 Not Available [facility] [address], [address] [place] [address] 04/13/2023 11:31:35 04/13/20 23 04/13/2023 BMP, serum or plasm a K+ 4.4 Not Available [facility] [address], [address] 04/13/2023 11:31:35 04/13/20 23 04/13/2023 BMP, serum or plasm a Na+ 135 Not Available [facility] [address], [address] 04/13/2023 11:31:35 04/13/20 23 04/13/2023 BMP, serum or plasm a tCO2 24 Not Available [facility] [address], [address] [place] [address] 04/13/2023 11:31:35 04/13/20 23 04/13/2023 rapid flu (A+B) Flu negati ve Not Available [facility] ed [address] [place] [address], [phone] 04/13/2023 11:22:35 04/13/20 23 04/13/2023 rapid SARS CoV 2 Ag, QL IA, respi rator y speci men rapid SARS CoV 2 Ag, QL IA, respiratory specimen positi ve Not Available [facility] ed [address] [place] [address], [phone] 04/13/2023 11:22:24 04/21/20 23 04/21/2023 rapid flu (A+B) Flu negati ve Not Available [facility] ed [address] [place] [address], [address] 04/21/2023 12:28:51 04/21/20 23 04/21/2023 rapid SARS CoV 2 Ag, QL IA, respi rator y speci men rapid SARS CoV 2 Ag, QL IA, respiratory specimen positi ve Not Available [address], [address] 04/21/2023 12:28:46 06/29/20 24 06/29/2024 rapid flu (A+B) Flu negati ve Not Available [facility] ed [address] [place] [address], [phone] 06/29/2024 21:27:30 06/29/2006/29/2024 rapid SARS CoV 2 Ag, QL IA, respi rator y speci men rapid SARS CoV 2 Ag, QL IA, respiratory specimen negati ve Not Available [facility] ed [address] [place] [address], [phone] 06/29/2024 21:27:26 Result Notes None recorded. Medical Equipment None Reported. Allergies Allergen ID Allergen Name Allergen Category Reaction Reaction Severity Criticality Documentation Date Start Date Code Code System Note Provider Name and Address Organization Details Recorded Time 3101 [facility] n Not available Not available Not available 04/21/2023 00235 6 RxNorm Not Available [facility] - production 16:54:40 Medications Name Sig Start Date Stop Date Status Note LastModified by Organization Details LastModified Time docusate sodium 50 mg/5 mL oral liquid 10 ML MIXED WITH JUICE OR MILK TO PREVENT THROAT IRRITATION ORALLY ONCE A DAY active Not Available Not Available No t Available acetaminophe n 325 mg tablet TAKE 2 TABLET BY MOUTH EVERY 6 HOURS NEEDED FOR PAIN/FEVER active Not Available Not Available N ot Available naproxen 375 mg tablet TAKE 1 TABLET BY MOUTH ONCE A DAY WITH FOOD OR MILK NEEDED active Not Available Not Available No t Available ipratropium 0.5 mg-albuterol 3 mg (2.5 mg base)/3 mL nebulization soln 3ml 2022 active Not Available Not Available Not Avai lable albuterol sulfate 2.5 mg/3 mL (0.083 %) solution for nebulization INHALE 3 ML EVERY 6 HOURS NEEDED FOR 30 DAYS active Not Available Not Available No t Available acetaminophe n 160 mg/5 mL oral liquid TAKE 20 ML BY MOUTH 3 TIMES A DAY active Not Available Not Available Not Available trazodone 50 mg tablet TAKE 1 TABLET BY MOUTH EVERY DAY AT BEDTIME active Not Available Not Available No t Available benzonatate 200 mg capsule TAKE 1 CAPSULE BY MOUTH THREE TIMES A DAY NEEDED active Not Available Not Available No t Available Thick-It oral powder mix 4 oz of fluids with 4 1/2 -5 1/2 scoop 2023 active Not Available Not Available Not Avai lable prednisone 20 mg tablet 2 tablets now- daughter will crush and give with applesauce 2022 active Not Available Not Available Not Avai lable clonazepam 0.5 mg tablet TAKE 1 TABLET BY MOUTH TWICE A DAY FOR 28 DAYS active Not Available Not Available No t Available melatonin 3 mg tablet TAKE 1 TABLET BY MOUTH EVERY DAY AT BEDTIME NEEDED active Not Available Not Available No t Available sennosides 8.8 mg/5 mL oral syrup TAKE 5 TO 10 ML AT BEDTIME ORALLY ONCE A DAY active Not Available Not Available No t Available Nlyuj-Cn-Jms Enema 19 gram-7 gram/118 mL USE DIRECTED RECTALLY ONCE active Not Available Not Available No t Available sulfamethoxa zole 800 mg-trimethop rim 160 mg tablet TAKE 1 TABLET BY MOUTH TWICE DAILY FOR 5 DAYS active Not Available Not Available No t Available guaifenesin 100 mg/5 mL oral liquid Take 10 mL every 4-6 hours by oral route as needed. 2022 active Not Available Not Available Not Avai lable acyclovir 800 mg tablet TAKE 1 TABLET BY MOUTH 5 TIMES PER DAY active Not Available Not Available No t Available hydrocortiso ne 2.5 % topical cream with perineal applicator APPLY DAILY TO SKIN TO AFFECTED AREA TWICE A DAY FOR 7 DAYS active Not Available Not Available No t Available benzonatate 100 mg capsule Take 1 capsule 3 times a day by oral route for 5 days. 2024 active Not Available Not Available Not Avai lable erythromycin 5 mg/gram (0.5 %) eye ointment APPLY 1 APPLICATION INTO THE LOWER EYELID OF AFFECTED EYE FOUR TIMES A DAY 10 DAYS active Not Available Not Available No t Available oseltamivir 75 mg capsule TAKE 1 CAPSULE BY MOUTH TWICE A DAY FOR 5 DAYS active Not Available Not Available No t Available amoxicillin 125 mg/5 mL oral suspension TAKE 20 ML (500MG) ORALLY THREE TIMES A DAY 5 DAY(S) DISCARD EXCESS active Not Available Not Available No t Available prednisolone 15 mg/5 mL oral solution TAKE 10 ML BY MOUTH EVERY DAY FOR 5 DAYS active Not Available Not Available N ot Available cefuroxime axetil 500 mg tablet TAKE 1 TABLET BY MOUTH TWICE A DAY active Not Available Not Available No t Available doxycycline hyclate 100 mg tablet TAKE 1 TABLET BY MOUTH TWICE A DAY active Not Available Not Available No t Available loratadine 10 mg tablet TAKE 1 TABLET BY MOUTH EVERY DAY FOR CONGESTION active Not Available Not Available N ot Available amoxicillin 875 mg-potassium clavulanate 125 mg tablet TAKE 1 TABLET BY MOUTH EVERY 12 HOURS FOR 5 DAYS active Not Available Not Available N ot Available Ventolin HFA 90 mcg/actuatio n aerosol inhaler INHALE 2 PUFFS 4 TIMES A DAY BY INHALATION ROUTE FOR 7 DAYS. active Not Available Not Available No t Available azithromycin 500 mg tablet TAKE 1 TABLET BY MOUTH EVERY DAY FOR 3 DAYS active Not Available Not Available No t Available metoprolol tartrate 25 mg tablet TAKE 1 TABLET BY MOUTH TWICE A DAY WITH FOOD active Not Available Not Available No t Available lactulose 10 gram/15 mL oral solution TAKE 15 ML BY MOUTH NEEDED FOR CONSTIPATIO N ONCE A DAY 30 DAYS active Not Available Not Available Not Available cholecalcife rol (vitamin D3) 10 mcg/mL (400 unit/mL) oral drops TAKE 2.5 ML BY MOUTH DAILY active Not Available Not Available No t Available risperidone 0.25 mg disintegrati ng tablet DISSOLVE 1 TABLET ON TONGUE EVERY DAY active Not Available Not Available No t Available Lubricant Eye (PG-PEG 400) 0.4 %-0.3 % drops INSTILL 2 DROPS IN THE EYE(S) EVERY 4 HOURS NEEDED FOR DRY EYES active Not Available Not Available No t Available [facility] spacer DIRECTED active Not Available Not Available Not Available Paxlovid 300 mg (150 mg x 2)-100 mg tablets in a dose pack TAKE 3 TABLETS BY MOUTH TWICE A DAY FOR 5 DAYS active Not Available Not Available No t Available Vitals Date Recorded Heart rate Oxygen saturation Oxygen saturation in Arterial blood by Pulse oximetry Respiratory rate Body temperature Systolic blood pressure Diastolic blood pressure Provider Name and Address Organization Details Last Updated DateTime 3 89 /min 98 % 98 % 16 /min 98.6 [degF] 131 mm[Hg] 79 mm[Hg] Not Available [employer] 3 11:00:41 Date Recorded Body weight Body mass index (BMI) Body height Provider Name and Address Organization Details Last Updated DateTime 04/13/2023 72093.97 g 24.7 kg/m2 157.48 cm Maureen Mabry MD [address] [place] [address],[address], [address], [place] - [employer] 04/13/2023 11:01:18 Date Recorded Heart rate Body temperature Respiratory rate Oxygen saturation Oxygen saturation in Arterial blood by Pulse oximetry Systolic blood pressure Diastolic blood pressure Provider Name and Address Organization Details Last Updated DateTime 3 87 /min 97.8 [degF] 28 /min 96 % 96 % 110 mm[Hg] 70 mm[Hg] Not Available [employer] 3 12:03:42 Date Recorded Oxygen saturation Oxygen saturation in Arterial blood by Pulse oximetry Body temperature Body height Respiratory rate Heart rate Body weight Systolic blood pressure Diastolic blood pressure Provider Name and Address Organization Details Last Updated DateTime 3 97 % 97 % 99.4 [degF] 157.48 cm 20 /min 110 /min 89148.6 4 g 154 mm[Hg] 87 mm[Hg] Not Available [facility] 18:51:41 Date Recorded Body weight Body temperature Heart rate Respiratory rate Oxygen saturation Oxygen saturation in Arterial blood by Pulse oximetry Systolic blood pressure Diastolic blood pressure Provider Name and Address Organization Details Last Updated DateTime 4 99709.7 2 g 98.2 [degF] 68 /min 14 /min 97 % 97 % 135 mm[Hg] 85 mm[Hg] Not Available [facility] 4 21:20:27 Date Recorded Body temperature Body weight Respiratory rate Body height Heart rate Oxygen saturation Oxygen saturation in Arterial blood by Pulse oximetry Systolic blood pressure Diastolic blood pressure Provider Name and Address Organization Details Last Updated DateTime 5 98.6 [degF] 94015.6 4 g 18 /min 157.48 cm 89 /min 96 % 96 % 170 mm[Hg] 98 mm[Hg] Not Available [facility] 5 20:51:20 Social History None recorded. Functional Status None recorded. Mental Status None recorded. Family History Nothing Reported. Medical History No medical history recorded. Gynecological HistoryNo gynecological history recorded. Obstetrics History GPAL:G 0 P 0 0 0 0 Past Encounters Encounter ID Performer Location Encounter Start Date Encounter Closed Date Diagnosis/Indication Diagnosis SNOMED-CT Code Diagnosis ICD10 Code Diagnosis Note [id number] Nile Navarro MD [facility] [address] [place] [phone] 02/03/2022 14:24:29 05/24/2022 11:41:07 At increased risk for falls 084584592 Z91.81 S/p fall due to side rail being down. Discussed fall risk precaution s. Head contusion with no acute neurologic al signs. Mental status at baseline per caregivers [id number] Pérez Lea MD [facility] [address] [place] [phone] 08/15/2022 18:26:38 08/17/2022 11:15:23 Influenza [id number] J11.1 [id number] Maureen Mabry MD [facility] [address] [place] [id number] 04/13/2023 11:00:38 04/13/2023 23:28:15 COVID-19 483244584 U07.1 advised rest and to stay well-hydra eliseo. Given stated weight of 135 pounds, advised maximum Tylenol is 2400 mg a day so she can have 325 mg every 4-6 hours as neededLabs excellent may have full dose Paxlovid Acute COVID-19 553009697 8 U07.1 We discussed the benefit of Paxlovid to reduce the risk of hospitaliz ation and , and the potential downsides/ side effects, including dysgeusia, headache, COVID rebound, and the possibilit y of medication interactio ns -advised to decrease the clonazepam , cut pills in half to give a dose of 0.25 mg twice a day for 5 days while on the Paxlovid(a s opposed to usual 0.5 mg twice a day due to possible interactio n but do not want to hold it completely as the patient could become agitated). Daughter requesting cough medicine, aware Tessalon may not be covered and she is okay with that [id number] Maureen Mabry MD [facility] [address] [place] [address] 04/21/2023 12:03:40 04/22/2023 00:27:40 COVID-19 905515707 U07.1 advised rest and to try and keep her well-hydra eliseo. continue Tylenol 325 mg every 6 hours as needed- as prescribed Labs excellent 04/13- nl renal function-alexandria lovell is a candidate for Paxlovid and Tessalon but she was unable to swallow the pills as prescribed on 04/13 when she was first diagnosed with COVID so she was given an infusion which we cannot order. This is why I advised close follow-up with PCP and I also contacted [facility] about reaching out to her care team to set this up again-she is high risk given her age and PMH.Patien t improved with DuoNeb, RR decreased to 20- 22 but due to mild persistent wheezing prednisone was added. The medic was able to instruct the family how to use a metered-do se inhaler-we will try and keep this patient at home. I prescribed liquid medication at the family's request for G-tube [id number] Nile Navarro MD [facility] [address] [place] [address] 04/22/2023 18:51:38 04/26/2023 10:52:19 COVID-19 [id number] U07.1 Seen for wellness check in setting of COVID diagnosis. O2 sats are stable. Will give additional duoneb now (patient doesn't have proper supplies for machine). Discussed red flag symptoms for which to seek higher level of care. [id number] JOEL VALLE MD [facility] [address] [place] [phone] 06/29/2024 21:20:20 06/30/2024 19:11:43 Cough 35643310 R05.9 Evaluation in the field was performed by my classroom paraprofessional colleague, as noted above, I provided real-time direction and supervisio n for this visit. The evaluation revealed an 79-year-ol d female with a history of CVA and dementia, whose family had concerns regarding intermitte nt cough. Initially, it was thought that the cough was something new occurring in the last two days. The family denies recent fevers, coughing up phlegm, nausea, vomiting, diarrhea, recent medication changes, decreased fluid or food intake, lethargy, and runny nose. They report it is hard to gauge the patient's condition due to her being non-verbal . Later, in a conversati on with the daughter, it was noted that the cough is intermitte nt and occurs mostly when the patient tries to drink thin liquids. In the past, she was on honey-thic k liquids, but this was discontinu ed for unknown reasons according to her daughter. Vital signs are stable. SpO2 is 97% on room air. The patient is afebrile.T he exam revealed clear lungs per the classroom paraprofessional, with no lower extremity edema.COVI D and flu tests are negative.A llergies were reviewed Impression :Intermitt ent cough possible due to dysphagia Plan:-A prescripti on for Thick-It was sent to her pharmacy with instructio ns on how to prepare honey-thic k liquids.-T he daughter was advised to have the patient sit upright at 90 degrees while eating and to take small bites and small sips of honey-thic k liquids.-R ed flags were discussed with the daughter. Primary care, consider__ _ Dispositio n: We discussed the diagnostic uncertaint y of home visits and the risk associated with this. In this case, the patient and I felt this to be an acceptable and reasonable amount of risk given the benefit of avoiding an ED visit. We discussed the need to seek care urgently/e mergently in the setting of any new or worsening serious symptoms, particular ly fever, chills, worsening cough CP, SOB, nausea, vomiting, inability to tolerate PO, worsening mental status, or any other concerns. [id number] JOEL VALLE MD [facility] [address] [place] [phone] 08/31/2024 20:51:18 09/01/2024 18:55:47 Cough [id number] R05.9 Evaluation in the field was performed by my classroom paraprofessional colleague, as noted above, I provided real-time direction and supervisio n for this visit. The evaluation revealed an 79-year-ol d female with a history of CVA and dementia, whose family had concerns regarding non-prod cough x 2 weeks without fever or SOB. Today also noted malodorous urine without hematuria. The family denies recent fevers, coughing up phlegm, nausea, vomiting, diarrhea, recent medication changes, decreased fluid or food intake, lethargy, and runny nose. They report it is hard to gauge the patient's condition due to her being non-verbal . Famly also reports she has had some dark yellow urine in her diaper and today it was noted to be malodorous . Vital signs are stable. SpO2 is 96% on room air. The patient is afebrile. BP elevated at 170/ 98The exam revealed clear lungs per the classroom paraprofessional, with no lower extremity edema.COVI D and flu tests not done given timing of the symptomsPa ramedic unable to obtain urine despite trying straight cath [id number] were reviewed Impression :Cough Plan:-A prescripti on for Tessalon pearls was sent to the pharmacy.- The daughter was encouraged to use Albuterol every 4 hours for the next few days.-The daughter was advised to continue supportive measures with tea and honey, and Vicks VapoRub.-F amily advised to call tomorrow if ongoing concerns for UTI and will retry again to obtain urine sample-Red flags were discussed with the daughter. Primary care, consider__ _ Dispositio n: We discussed the diagnostic uncertaint y of home visits and the risk associated with this. In this case, the patient and I felt this to be an acceptable and reasonable amount of risk given the benefit of avoiding an ED visit. We discussed the need to seek care urgently/e mergently in the setting of any new or worsening serious symptoms, particular ly fever, chills, worsening cough CP, SOB, nausea, vomiting, inability to tolerate PO, worsening mental status, or any other concerns. Health Concerns Section Related Observation LastModified by Organization Detai ls LastModified Time None Recorded Concern Status LastModified by Organization Details LastModified Time None Recorded Advance Directives Directive None Recorded Payers Encounter Date Sequence Insurance Name Policy Number Policy Collins Covered Member ID Collins Member ID Guarantor Name 04/13/2023 1 [facility] DOS ON OR AFTER 2022 - DUAL ELIGIBLE - INTERMEDIATE OPTIONS AND ONE CARE (MEDICARE REPLACEMENT/ADV ANTAGE - HMO) Rosemarie Cline Tomy [id number] Rosemarie Cline Tomy 04/21/2023 1 [facility] - DOS ON OR AFTER 2022 - DUAL ELIGIBLE - INTERMEDIATE OPTIONS AND ONE CARE (MEDICARE REPLACEMENT/ADV ANTAGE - HMO) Rosemarie Cline Tomy [id number] Rosemarie Cline Tomy 04/22/2023 1 [facility] - DOS ON OR AFTER 2022 - DUAL ELIGIBLE - INTERMEDIATE OPTIONS AND ONE CARE (MEDICARE REPLACEMENT/ADV ANTAGE - HMO) Rosemarie Cline [id number] Rosemarie Cline 06/29/2024 1 [facility] - DOS ON OR AFTER 2022 - DUAL ELIGIBLE - INTERMEDIATE OPTIONS AND ONE CARE (MEDICARE REPLACEMENT/ADV ANTAGE - HMO) Rosemarie Cline [id number] Rosemarie Cline Tomy 08/31/2024 1 [facility] - DOS ON OR AFTER 2022 - DUAL ELIGIBLE - INTERMEDIATE OPTIONS AND ONE CARE (MEDICARE REPLACEMENT/ADV ANTAGE - HMO) Rosemarie Cline [id number] Rosemarie Cline Notes Date Note Type Note Provider Name and Address Organization Details Recorded Time 04/13/2023 text/html HPI: Pt tested positive for Covid yesterday and today the member woke up coughing and with 102 fever. Pt does not speak. Fever this morning, but calm. No concern for respiratory distress. She ate regular breakfast. ................... ................... ................... ................... ................... ................... ................... ........ CRC Nursing Assessment: Comments: CRC RN DID NOT NEED FURTHER INFO SEGMD: pat w/ severe dementia/ HTN/ bed bound/non verbal-had 975 mg of Tylenol( 3 x 325 mg- NOT 325 mg) at 830 this morning and is now afebrile-eating and drinking well minimal dry cough/is not mental status baseline per daughter........... ................... ................... ................... ................... ................... ................... ................ Server Systems Administrator Note From Jesus Castelan: Pt's daughter reporting temp of 102 this morning. 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 Pt was given 325mg of tylenol at approx. 0830 this morning, that has helped reduce the fever. Pt is AOX4 for her baseline. Pt has a slight cough, lungs are CTA bi - lat. BMP was completed and all labs are within normal limits. BGL 153. Pt was prescibed Paxlovid for 5 days to help with COVID Sx. Daughter was educated on all red flags associated with COVID and Paxlovid. Educated daughter on supportive care. Daughter understood all instructions ................... ................... ................... ................... ................... ................... ................... ........ Disposition: Fulfilled Maureen Mabry MD [address] [facility],[address], [place], [address], [employer] 04/13/2023 11:50:17 04/21/2023 text/html HPI: 77 yr Peruvian-speaking female with c/o worsening congestion. Fever yesterday, afebrile today. COVID test negative. Denies nausea, no vomiting. Not eating much. Drinking some, had milk and some juice. Daughter requesting pt be evaluated. ................... ................... ................... ................... ................... ................... ................... ........ CRC Nursing Assessment: Comments: CRC RN did not require any additional information to process this visit. ................... ................... ................... ................... ................... ................... ................... ........ Server Systems Administrator Note From Brianna Zeng: Community Server Systems Administrator Yasir Zeng CCA1 dispatched to a yellow for a 77 yof C/O a cough. Upon arrival, the pt was lying in bed, awake and alert, combative and confused at baseline per family-daughter/car etaker. Pt was bedbound and nonverbal at baseline. She stated that the pt appeared pale, but was not more agitated or tired than she was normally. She stated that the pt tested positive for covid over a week ago, but that she did not tolerate pills, and received a monoclonal antibody infusion, which ended 4 days prior. She stated the pt had tested negative 2X since then w/ home tests, but that she had become audibly wheezy, was coughing more, and was tolerating less PO intake. She reported a fever earlier that day, and reported the pt's last dose of tylenol was at 8:30 AM. Pt's daughter stated that the pt did not effectively protect her own airway, and was unsure if she was producing more phlegm or what color it was. Airway was open and patent, free of swelling or fluids-no dry skin on lips. Skin had good turgor-no tenting. Pt felt cool to the touch, but was not clammy. No stridor or drooling. Equal bilateral chest rise with labored RR; inspiratory and expiratory wheezing heard in all frye, more pronounced on her right side, w/ rhonchi on her right side as well. No abd distention, rigidity, or tenderness. No pedal edema. 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 Flu negative, covid positive. C consulted; pt was given 2.5 mg albuterol and 500 mCg atrovent SVN. Skin color improved, RR rate decreased to 20/min, and inspiratory wheezing was relieved in all frye. Expiratory wheezing still present in all frye, but less pronounced overall, w/ rhonchi still present on her right side. Lung sounds were not diminished in lower frye. Pt was given 40 mg prednisone PO crushed in applesauce w/ assistance from family, as well as a rx for guafenesin, steroids, and a MDI. Family was educated on MDI use, and given instructions for medications, including tylenol. Red flags were discussed at length, and family was instructed to have a low threshold for transport to the ED. They were also instructed to call the pt's PCP RADHA as well. ................... ................... ................... ................... ................... ................... ................... ........ Disposition: Fulfilled SEGMD: as above-Patient seen by me 04/13/23.- bmp was nl- Diagnosed with COVID at the time. I prescribed Tessalon and Paxlovid, but she was unable to take the pills, (she has trouble clearing her airway due to the dementia & the right-sided hemiplegia). She also has hx dm/HTN/-she has no MDIs or nebulizers at home. Family reports she was given intravenous infusions in hospital, they are unsure of what but she improved now she is ill again. Home COVID test was negative there is no known COVID exposure. Maureen Mabry MD [address] [place] [address],[address], [place], [address], [employer] 04/21/2023 16:01:19 04/22/2023 text/html CRC Nursing Assessment: Chief Complaints: Shortness of Breath/Dyspnea PMH: Severe Dementia, Para or Quadraplegia, Hypertension Allergies: Unknown Comments: [employer] follow up visit: Member was seen on 04/21 - COVID positive - Family is requesting a follow up wellness check - Member is Peruvian speaking - CG is [place] [facility] [place] Patient has COVID again-can you call and check on her tomorrow please. I told the daughter a very low threshold for going to the ER but if she is still home tomorrow she may need another visit from us. Can you reach out to the healthcare educator also and let them know she has COVID again because she required an IV infusion last time because she could not take the Paxlovid pills. TY! Hannah DONOVAN ................... ................... ................... ................... ................... ................... ................... ........ Server Systems Administrator Note From Emily Gómez: Sent to a call for a recheck of a pt who tested positive for Covid yesterday. CCA-01 arrives on scene, pt is alert and disoriented at baseline due to dementia. Per family pt is non-verbal at baseline is slightly agitated, has wheezing and a non-productive cough. Family states pt is doing a little better today and did eat. Pt was given a neb treatment during [facility] visit last night which helped her. Pt was prescribed an inhaler, but pt is unable to follow commands to use it. Family is administering prednisolone suspension, mucinex, and tylenol as prescribed. Family is advised to contact PCP regarding a nebulizer. BP:154/87, P:110, RR:20, SpO2:97% RA, T:99.4; Head: unremarkable; Lung sounds: bilateral rhochi in upper lobes and wheezing noted; Abdomen: soft, non-tender, no distention; Back: unremarkable; Extremities: unremarkable; Skin: pink, warm, dry; [facility] [place] and orders Duo neb. Pt responds well to duo neb. Pt calms after duo neb. Decreased wheezing noted after duo neb. Family advised to contact [facility] tomorrow if pt requires another treatment or if condition worsens. Red flags discussed. Family has no further questions. ................... ................... ................... ................... ................... ................... ................... ........ Disposition: Fulfilled Nile Navarro MD [address] [facility],[address], [place], [address], [employer] 04/22/2023 19:39:50 06/29/2024 text/html HPI: Patient's grandson Darnell stated that the patient has had a horrible cough all day that is dry but she does sound wheezy, Darnell reported that they do have a nebulizer machine in the home but they don't know how to use it. Darnell denied fever and any other sick contacts. ................... ................... ................... ................... ................... ................... ................... ........ CRC Nurse Triage Notes (Lissy Harris): Chief Complaints: Cough PMH: Para or Quadriplegia, Hypertension Comments: CRC RN did not require any additional information to process this visit. Server Systems Administrator Organization Information for Muriel Combsnicolette Legal Name: [employer].? Address: [address] [place] [id number], Form Maker Plaster: Salo Bang MD CLCELSA No.: [id number] Server Systems Administrator POC Test Results from Muriel Combs [facility] Rapid COVID antigen (21:20:02) COVID: - Attachments uploaded as part of this test result can be found under Documents section. Rapid influenza antigen (21:22:14) Flu: - Attachments uploaded as part of this test result can be found under Documents section. ................... ................... ................... ................... ................... ................... ................... ........ Server Systems Administrator Note From Muriel Combs: Disp for the 79 year old female cc cough. Upon arrival patient found supine in bed. Patient is CHASE x1 GCS x 10 this is baseline for patient due to dementia and hx of CVA. Family members on scene report patient is non-verbal. Family states patient's had a cough for two days. Family denies recent fevers, denies coughing up phlegm, denies n/v/d, denies recent medication change, denies decreased fluid/food intake, denies lethargy, denies runny nose. Family reports it is hard to gauge patient due to the patient being non-verbal. Family reports patient does not cough all the time, and tends to happen more after drinking and eating. Family reports patient was prescribed thickening agent for fluids for trouble swallowing in the past. Monitor applied to patient, vtls stated above. Lungs clear in all frye, skin pink/warm/dry, strong radial pulse. Rapid Covid and Flu came back negative. [place] with [facility] [place] Valle of vitals and assessment stated above. Dr. Valle advised family to continue Mucinex and encouraged fluid intake such as tea and honey for cough. Prescription sent to pharmacy for thickening agent for fluids. Dr. Valle advised the patient to lay elevated in bed to decrease coughing. Family understood. Family educated of risks/red flags and advised to have patient further medically evaluated. Family understood. All times approx. ................... ................... ................... ................... ................... ................... ................... ........ [facility] Consulted: Joel Valle ................... ................... ................... ................... ................... ................... ................... ........ Disposition: Stacey VALLE MD [address] [facility],[address] [facility], [place], [address], [employer] 06/30/2024 00:34:42 08/31/2024 text/html HPI: 79yo female with PMH dementia, TBI, HTN, depression who is cared for by daughter Madeline and grandtiffany Patrick at home. Madeline and Rosemarie speak Peruvian but grandtiffany speaks [place]. Rosemarie is primarily non-verbal. Dtr called to report non-prod cough x 2 weeks without fever or SOB. Today also noted malodorous urine without hematuria. ................... ................... ................... ................... ................... ................... ................... ........ CRC Nurse Triage Notes (Lissy Harris - RN): Chief Complaints: Cough, Urinary symptoms PMH: Para or Quadriplegia, Hypertension, Dementia (e.g., Alzheimer's Disease), Depression Comments: CRC RN did not require any additional information to process this visit. ................... ................... ................... ................... ................... ................... ................... ........ Baseline Information: Baseline Hb: 13.1 g/dL Baseline HCt: 41% Baseline Creatinine: 0.6 mg/dL ................... ................... ................... ................... ................... ................... ................... ........ Server Systems Administrator Note From Ranjith Chávez: TEZ makes pt contact. She is found laying supine in a hospital bed in the bedroom where she is cared for by her daughter. She is asleep, but is easily arousable. She conscious and alert at her baseline. She is agitated, but is not in acute distress. Her chest rises and falls w/ respirations, no stridor or sonorous respirations are present. She has no new facial or focal deficits and she is non-verbal from previous stroke. She is not bleeding anywhere. Pt and daughter are Peruvian-speaking only. Grandson is on scene to translate. Family endorses a dry cough for the past 2 weeks. Daughter has been administering an albuterol breathing treatment BID, but it does not seem to be helping. It is also reported she has had some dark yellow urine in her diaper and today it was noted to be malodorous. Family is denying any indications the pt has cp, she is not sob, and she has not c/o sore throat and has not been feverish w/ chills. Pt will not spit out sputum, but was has been noticed in her mouth has been clear to white in color. Family consents to evaluation and tx today.[facility] obtains vital signs and assesses pt. Physical exam is unremarkable and lung sounds are clear. [facility] contacts [facility] [place] discuss the above and [facility] orders a straight cath for urine dipstick and culture. [facility] makes two attempts to straight cath and neither is successful. [facility] contacts [facility] and [facility] prescribes guaifenesin for pt's cough and orders albuterol treatments every four hours. [facility] informs family and recommends a call back to [facility] in the morning for a reattempt at a urinalysis. Family agrees and thanks [facility] for coming.[facility] is clear. Report completed by LUZ Chávez [id number]. ................... ................... ................... ................... ................... ................... ................... ........ [facility] Consulted: Joel Valle ................... ................... ................... ................... ................... ................... ................... ........ Disposition: Stacey VALLE MD [address] [place] [address],[address] [facility], [place], [address], [employer] 09/01/2024 00:47:38 OBGyn Episode No OBEpisode recorded.
[2024-12-10 01:22] VITALS: BP 148/88; PULSE 108; RESP 18; TEMP 36; O2SAT 93
[2024-12-10 01:24] LABS: MANUAL DIFF FLAG NO
[2024-12-10 01:25] LABS: Basophils Percent Auto 0.2 % (0-2); Eosinophils Percent Auto 0.1 % (0-4); Hematocrit 39.6 % (37.0-47.0); Hemoglobin 13.5 g/dl (12.0-16.0); Imm Gran Abs Auto 0.08 X10*3/uL (0.00-0.03); Imm Gran Pct Auto 0.5 % (0.0-0.4); Lymphocytes Percent Auto 6.2 % (20-40); Mean Corpuscular HGB Conc 34.1 g/dl (31.0-35.0); Mean Corpuscular Hemoglobin 30.1 pg (27.0-33.0); Mean Corpuscular Volume 88.4 fL (80.0-98.0); Mean Platelet Volume 9.3 fL (9.4-12.3); Monocytes Absolute Auto 0.8 X10*3/uL (0.1-1.2); Monocytes Percent Auto 4.9 % (2-11); Neutrophils Absolute Auto 13.8 x10*3/uL (2.0-8.3); Neutrophils Percent Auto 88.1 % (45-73); Platelet Count 111 X10*3/uL (160-400); Red Blood Count 4.48 X10*6/uL (4.20-5.50); Red Cell Distribution Width 12.7 % (11.0-16.0); White Blood Count 15.7 X10*3/uL (4.8-10.8)
[2024-12-10 01:48] LABS: Alanine Aminotransferase 21 U/L (0-31); Albumin Level 3.4 g/dL (3.5-5.0); Anion Gap 16 (12-20); Aspartate Amino Transferase 41 U/L (5-31); Bilirubin Total 0.9 mg/dL (0.0-1.0); Blood Urea Nitrogen 13 mg/dL (9-16); Calcium 9.3 mg/dL (8.4-10.2); Carbon Dioxide 20 mmol/L (22-29); Chloride 104 mmol/L (96-108); Creatinine Clr Calc Pharmacy 59.9; Estimated Glomerular Filt Rate > 60; Glucose Random 205 mg/dL (60-115); Potassium 4.2 mmol/L (3.3-5.1); Sodium 136 mmol/L (135-145); Total Protein 6.4 g/dL (6.5-8.0)
[2024-12-10 01:54] LABS: Troponin-I High Sensitivity 137.2 ng/L (<3.5-17.0)
[2024-12-10 02:09] LABS: Alkaline Phosphatase 92 U/L (39-117)
[2024-12-10 02:43] VITALS: BP 145/73; PULSE 101; RESP 18; TEMP 37.8; O2SAT 93
[2024-12-10 03:29] LABS: Influenza A PCR NEGATIVE (Negative); Influenza B PCR NEGATIVE (Negative); Resp Syncy Virus RNA Qual PCR NEGATIVE (Negative); SARS COV2 PCR INHOUSE NEGATIVE (Negative)
[2024-12-10 03:32] LABS: Appearance Urine Cloudy; Color Urine Yellow; Glucose Urine UA 100 mg/dL (Negative); Leukocyte Esterase Urine Moderate (2+) (Negative); Nitrite Urine Positive (Negative); PH 6.5 (5.0-9.0); UMIC TRIGGER UACC YES; Urine Blood Small (1+) (Negative); Urine Ketones Trace mg/dL (Negative); Urine Protein 30 (1+) mg/dL (Neg-Trace)
[2024-12-10 03:37] LABS: Troponin-I High Sensitivity 131.4 ng/L (<3.5-17.0)
[2024-12-10] MEDS: Acetaminophen Oral Liquid 650 MG/20.3 ML SOLUTION PO (03:37)
[2024-12-10 03:40] LABS: Bacteria Urine 4+ (None Seen); Hyaline Casts Urine 0-2 /LPF (0-2); Squamous Epithelial Cell Urine 0-2 /HPF (0-2); UACC Culture Trigger YES; WBC Urine >50 /HPF (0-5)
[2024-12-10] MEDS: cefuroxime axetiL 500 MG TABLET PO (04:29)
[2024-12-10 04:48] VITALS: BP 150/90; PULSE 102; RESP 17; TEMP 37.8; O2SAT 94
[2024-12-10 04:52] VITALS: BP 150/90; PULSE 102; RESP 17; TEMP 37.8; O2SAT 94
== END 2024-12-10 06:03 | disposition home or self-care (01) ==
PROVIDERS: Emergency Provider Internal Medicine
DX: N39.0 Urinary tract infection, site not specified (principal); F41.9 Anxiety disorder, unspecified; R06.4 Hyperventilation; R00.0 Tachycardia, unspecified; Z03.818 Encounter for observation for suspected exposure to other biological agents ruled out; Z79.899 Other long term (current) drug therapy
CPT/HCPCS: 0241U; 36415; 71045; 80053; 81001; 84484; 85025; 87086; 87088; 87186; 93005; 99283; 99285

== ENCOUNTER → 2024-12-10 02:21 | Outpatient (BNV) | payer MEDICARE, SELFPAY | PROVIDERS: Emergency Provider Internal Medicine; Visit Provider Radiology Diagnostic Radiology | DX: R06.02 Shortness of breath (principal) | CPT/HCPCS: 71045 ==

== ENCOUNTER 2024-12-14 17:47 | Emergency (ER) | payer OTHER, SELFPAY ==
[2024-12-14 18:26] VITALS: BP 145/99; PULSE 106; RESP 16; TEMP 36.3; O2SAT 95; BMI 33.3
--- NOTE | 2024-12-14 18:26 | ED.GENADULT ---
HPI - General Adult General Chief complaint: Extremity Injury, Lower Stated complaint: right leg pain Related Data Previous Rx's ?Medication ?Instructions ?Recorded cefuroxime axetil 500 mg tablet 500 mg PO BID #20 tabs 06/01/21 doxycycline hyclate 100 mg tablet 100 mg PO BID #20 tabs 06/01/21 ibuprofen 600 mg tablet 600 mg PO Q6H PRN pain #20 tabs 10/09/21 cefuroxime axetil 500 mg tablet 500 mg PO BID 7 days #14 tabs 12/10/24 Allergies Allergy/AdvReac Type Severity Reaction Status Date / Time sertraline Allergy Unknown aggression Verified 12/14/24 18:34 memantine [Namenda] AdvReac Unknown headaches Verified 12/14/24 18:34 PMFSH Past Medical History Medical History Arthritis Alzheimer disease Dementia Social History Social History Advance Directives: No Advance Directives Information Provided: No Physical Exam ED Vital Signs: Vital Signs - 24 hr 12/14/24 18:26 Temperature 97.3 F Pulse Rate 106 H Respiratory Rate 16 Blood Pressure 145/99 H Pulse Oximetry 95 Oxygen Delivery Method Room Air BMI result Body Mass Index 33.3 Course Course Course Narrative: This is a Rapid Medical Examination (RME) performed by Parmjit Bryant PA-C in triage. Full HPI, ROS, assessment and treatment plan per primary provider in the Main ED. 12/14/241825 ROULA Jimenez Hx: 79 yo female hx Alzheimer dementia here w/ daughter for eval of LLE pain. daughter reports patient slid out of shower chair 2 weeks ago. now reporting left LE pain x3 days. pt complaining of pain w/ any movements of LLE. daughter states she screams out in pain. daughter uses a lift at home to transfer patient from chair to bed. Only uses wheelchair to ambulate. Recently evaluated at our facility on 12/10/2024 for UTI. Taking antibiotics as prescribed. She was not complaining of any hip pain at the time she presented to ED. PE/vitals: Patient sitting in wheelchair. Appears to be at her baseline per daughter. Hip not evaluated as exam is limited in triage. Plan: Basic labs, UA, imaging +further eval in back Reevaluation(s) Reevaluation #1: Patient left the emergency department before myself or any of the other clinicians could review or explain physical exam findings, test results, need or lack there of for additional testing, treatment options, or a treatment plan. Discharge Plan Discharge Clinical Impression: Hip pain, left Patient Disposition: Left W/O Completing Treatment Prescriptions: No Action cefuroxime axetil 500 mg tablet 500 mg PO BID Qty: 20 0RF doxycycline hyclate 100 mg tablet 100 mg PO BID Qty: 20 0RF ibuprofen 600 mg tablet 600 mg PO Q6H PRN (Reason: pain) Qty: 20 0RF cefuroxime axetil 500 mg tablet 500 mg PO BID 7 Days Qty: 14 0RF Discharge Date/Time: 12/14/24 21:20
--- NOTE | 2024-12-14 18:44 | MHC.EDTECH ---
This pct attempted to draw patients labs but the patients daughter states that she didnt bring her mother in for blood work,daughter states she only brought in her mother because she has pain in her legs and wants them checked out only. Provider Aware.
== END 2024-12-14 21:20 | disposition left against medical advice (07) ==
PROVIDERS: Emergency Provider Emergency Medicine
DX: M25.552 Pain in left hip (principal)
CPT/HCPCS: 99281

== ENCOUNTER 2024-12-21 13:38 | Emergency (ER) | payer OTHER, SELFPAY ==
--- NOTE | 2024-12-21 | ECG_ITS ---
Test Reason : TACHY Blood Pressure : */* mmHG Vent. Rate : 92 BPM Atrial Rate : 92 BPM P-R Int : 106 ms QRS Dur : 66 ms QT Int : 364 ms P-R-T Axes : 20 9 33 degrees QTcB Int : 450 ms Sinus rhythm with short FL Inferior infarct (cited on or before 13-Sep-2009) Nonspecific ST and T wave abnormality Abnormal ECG When compared with ECG of 10-Dec-2024 00:57, No significant changes seen Referred By: Lachelle Ruiz Electronically Signed By: CARLO SWANN
--- NOTE | ~2024-12-21 | XR_ITS ---
EXAMINATION: XR HIP 1 VIEW LEFT WITH PELVIS HISTORY: pain L hip fall 2 weeks ago COMPARISON: There are no prior studies for comparison. FINDINGS: Two AP views of the pelvis and a single view of the left hip are submitted. Osseous mineralization is normal. There are mildly displaced subcapital fractures of both femurs. These appear chronic in nature. The joint spaces are maintained. The soft tissues are unremarkable. XR/XR hip LT w [id number] IMPRESSION: Mildly displaced subcapital fractures of both femurs which appear chronic. Clinical correlation is recommended. Electronically signed by: Manish Fuentes MD 12/21/2024 02:54 PM EDT
[2024-12-21 13:49] VITALS: BP 112/75; BP 132/84; PULSE 95; PULSE 96; RESP 20; TEMP 36.8; O2SAT 94; O2SAT 99; BMI 23.7
--- NOTE | 2024-12-21 13:55 | ED.LOWEXIN ---
HPI - Extremity Injury (Lower) General Chief Complaint: Extremity Injury, Lower Stated Complaint: LT HIP FRACTURE, DEMENTIA PER EMS Time Seen by Provider: 12/21/24 13:49 Source: patient, family, EMS and old records reviewed Mode of arrival: EMS Limitations: other (dementia) History of Present Illness ED Provider: BRANDIE HPI Narrative: 79 yo female with PMH of dementia, arthritis, UTI not on blood thinners here with c/o fall about 2 weeks ago when daughter was showering her - the daughter is HCP and PAINTING MACHINE OPERATOR she slid down but did not hit her head and her daughter did try to catch her. The shower chair gave way. She seemed okay but then would cry with adult diaper changes. She is bed bound and not ambulatory. The daughter had tele health visit today with portable xray which reported L hip fracture. The daughter states she just wants to confirm and does not want surgery as her mother is bed bound MD complaint: hip injury Onset (ago): week(s) (2) Injury: Left: hip Type of Injury: blunt Place: home Severity: mild Relieving factors: rest Exacerbating factors: movement (changing her at home) Context: fall Other symptoms: none Treatments prior to arrival: other (tylenol) Related Data Previous Rx's ?Medication ?Instructions ?Recorded cefuroxime axetil 500 mg tablet 500 mg PO BID #20 tabs 06/01/21 doxycycline hyclate 100 mg tablet 100 mg PO BID #20 tabs 06/01/21 ibuprofen 600 mg tablet 600 mg PO Q6H PRN pain #20 tabs 10/09/21 cefuroxime axetil 500 mg tablet 500 mg PO BID 7 days #14 tabs 12/10/24 Allergies Allergy/AdvReac Type Severity Reaction Status Date / Time sertraline Allergy Unknown aggression Verified 12/21/24 13:52 memantine [Namenda] AdvReac Unknown headaches Verified 12/21/24 13:52 Review of Systems Review of Systems: ROS unable to be obtained due to dementia [facility] Past Medical History Attestation statement: The following information was validated with the patient. Source: old records reviewed Medical History Arthritis Alzheimer disease Dementia Social History Social History Smoked in Last 30 Days: No Use of substances other than those prescribed or required for medical reasons: No Advance Directives: Yes Advance Directives Information Provided: Yes Advance Directives on File: No Do you have a plan to hurt others: No Plan Physical Exam Vital Signs: Vital Signs: Last Vital Signs Temp 98.2 F 12/21/24 13:49 Pulse 97 12/21/24 15:07 Resp 20 12/21/24 15:07 BP 131/97 H 12/21/24 15:07 Pulse Ox 96 12/21/24 15:07 O2 Del Method Room Air 12/21/24 15:07 BMI result Body Mass Index 23.7 Appearance: Alert. at baseline, cries out when I go to touch her. No acute distress. Eyes: Pupils equal, round and reactive to light. ENT: Pharynx normal. atraumatic Neck: Normal inspection. Neck supple. CVS: Normal heart rate and rhythm. Pulses normal. Respiratory: No respiratory distress. Breath sounds normal. Abdomen: Soft and nontender. Skin: Skin warm and dry. Normal skin color. Normal skin turgor. Extremities: No lower extremity edema. No thigh hematoma felt, no shortening noted Neuro: at baseline per daughter Medications Administered Discontinued Medications Generic Name Dose Route Start Last Admin Trade Name Freq PRN Reason Stop Dose Admin Hydromorphone HCl 0.5 mg 12/21/24 14:43 12/21/24 15:06 Hydromorphone Hcl 0.5 Mg/0.5 Ml Syringe IVPUSH 12/21/24 14:44 0.5 mg ONCE ONE Administration Protocol Ondansetron HCl 4 mg 12/21/24 14:43 12/21/24 15:06 Ondansetron Hcl 4 Mg/2 Ml Vial IVPUSH 12/21/24 14:44 4 mg ONCE ONE Administration Medical Decision Making Medical Decision Making MDM Narrative: 79 yo female with PMH of dementia, arthritis, UTI not on blood thinners here with c/o fall now intermittent L hip pain when changing her pulses are intact, she cries when you touch her, no hematoma felt on thigh, no head injury reported. She is NV intact at this time I did offer labs, EKG, pain control and surgery but daughter is here asking for xray and would like to bring her home - she refuses surgery. The patient cannot participate in decisions due to dementia and daughter is her HCP. Will obtain hip xray and discuss with daughter again. Differential Diagnosis Differential Diagnoses: The differential diagnosis associated with the presentation includes fracture Admission/Observation Consideration of admission/observation: Escalation of care including admission/observation considered daughter who is HCP - HCP would be invoked as patient cannot make decisions and is confused she does not want surgery she came to confirm fracture discussed with orthopedics family declines surgery and admission they want to bring her home, benefits outweigh risks Lab Data MDM Lab Attestation statement: I reviewed the patient's lab results. 12/21/24 15:37 12/21/24 15:37 Labs: Lab Results 12/21/24 Range/Units 15:37 WBC 13.0 H (4.8-10.8) X10*3/uL RBC 4.33 (4.20-5.50) X10*6/uL Hgb 12.7 (12.0-16.0) g/dl Hct 39.2 (37.0-47.0) % MCV 90.5 (80.0-98.0) fL MCH 29.3 (27.0-33.0) pg MCHC 32.4 (31.0-35.0) g/dl RDW 12.9 (11.0-16.0) % Plt Count 256 D (160-400) X10*3/uL MPV 8.6 L (9.4-12.3) fL Immature Gran % (Auto) 0.5 H (0.0-0.4) % Neut % (Auto) 77.7 H (45-73) % Lymph % (Auto) 13.4 L (20-40) % [place] % (Auto) 6.5 (2-11) % Eos % (Auto) 1.7 (0-4) % Baso % (Auto) 0.2 (0-2) % Lymph # (Auto) 1.8 (1.2-4.9) X10*3/uL [place] # (Auto) 0.9 (0.1-1.2) X10*3/uL Eos # (Auto) 0.2 (0.0-0.4) X10*3/uL Baso # (Auto) 0.0 (0.0-0.2) X10*3/uL Abs Immat Gran (auto) 0.06 H (0.00-0.03) X10*3/uL Absolute Neuts (auto) 10.1 H (2.0-8.3) x10*3/uL Absolute Nucleated RBC 0.000 (0.0-0.012) X10*3/uL Nucleated RBC % (auto) 0.0 (0.0-0.2) /100WBC PT 12.5 H (10.9-12.4) SEC INR 1.1 (0.9-1.1) Independent Interpretation I performed an independent interpretation of an: EKG and Plain X-Ray (fracture) Interpretation: Rate: 92 Rhythm: NSR [place]: left Normal P waves. Normal LOBIT[place]. Normal QRS complex. ST T wave : inverted t waves anterior, no RIA qTC: 450 prior studies: no change from prior The study has been interpreted contemporaneously by me. . Radiology Impression Discussion of test interpretation with radiology: I have reviewed the radiologist's reading. Independent Historian Clinical information obtained from an independent historian. History obtained from or confirmed by: EMS External Record Review External record reviewed: Outpatient record Discharge Plan Discharge Clinical Impression: Bilateral closed hip fractures Patient Disposition: Home, Self-Care Instructions: Hip Fracture (ED) Additional Instructions: at this time given bilateral hip fractures and discussion with orthopedics you have declined surgery no weight bearing return for any worsening pain, swelling, chest pain or trouble breathing Prescriptions: No Action cefuroxime axetil 500 mg tablet 500 mg PO BID Qty: 20 0RF doxycycline hyclate 100 mg tablet 100 mg PO BID Qty: 20 0RF ibuprofen 600 mg tablet 600 mg PO Q6H PRN (Reason: pain) Qty: 20 0RF cefuroxime axetil 500 mg tablet 500 mg PO BID 7 Days Qty: 14 0RF Print Language: Faroese
--- OUTSIDE RECORDS SUMMARY | 2024-12-21 14:49 | XMS_ITS | Data Portability ---
Author Organization [employer] [facility], [place] in - [facility] Address [address] [place] [address] Care Team Providers Care Interventional Technologist Name Role Phone HIM CCA OTHER Assessment Encounter Date Assessment Date Assessment LastModified by Organization Details LastModified Time 04/21/2023 04/21/2023 I provided real -time medical direction via phone for this encounter, and was available for additional phone based assistance as needed. I have reviewed and agree with the Assessment and Plan as documented by the Restaurant Crew. Patient's family given the opportunity to ask [...] to call 911- verbalized understanding of instructions [email or web address] Not available 04/21/2023 15:55:54 Plan of Treatment Reminders Order Date Submit Date Provider Last Modified By Organization Details Last Modified Time Details Appointments None recorded. Lab rapid SARS CoV 2 Ag, QL IA, respiratory specimen [email or web address], [address] 4 21:30:41 rapid flu (A+B) [email or web address], [address] 4 21:30:41 rapid SARS CoV 2 Ag, QL IA, respiratory specimen 2022 023 [email or web address] [address], [address] 3 12:29:55 rapid flu (A+B) 2022 023 [email or web address] 0 [facility], [address] [place] [address], [place], [address] 3 12:29:55 Referral None recorded. Procedures None recorded. Surgeries None recorded. Imaging None recorded. Medication Orders benzonatate 100 [address] capsule [address] [facility] #[id number], [address] [place], [address], 5 21:40:42 Thick-It oral powder [address] [facility] #0373, [address] [place], [address], 4 21:38:13 ipratropium 0.5 mg-albutero l 3 mg (2.5 mg base)/3 mL nebulizatio n soln 2022 023 [email or web address] [facility]/Pharmacy #0373, [address] [place], [address], 3 19:39:35 albuterol sulfate HFA 90 mcg/actuati on aerosol inhaler [address] [facility] #0373, [address] [place], [address], 3 12:34:33 prednisolon e 15 mg/5 mL oral solution [address] [facility] #0373, [address] [place], [address], 3 12:34:33 guaifenesin 100 mg/5 mL oral liquid [address] [facility] #0373, [address] [place], [address], 3 12:36:02 prednisone 20 mg tablet 2022 023 [email or web address] 0 [facility], [address] [place], [address], 3 12:40:21 ipratropium 0.5 mg-albutero l 3 mg (2.5 mg base)/3 mL nebulizatio n soln 2022 023 [email or web address] 0 [facility], [address] [place], [address], 3 12:40:22 Patient TargetsNo targets recorded. Patient InstructionsNo instructions recorded. Reason for Referral None Reported. Results Created Date Observation Date Name Description Value Unit Range Abnormal Flag Note LastModifiedBy Organization Detail LastModifiedTime 04/13/2004/13/2023 BMP, serum or plasm a BUN 11 Not Available Main - [facility] [address], [address] 04/13/2023 11:31:35 04/13/20 23 04/13/2023 BMP, serum or plasm a Ca I shahana 1.17 Not Available Main - [address], [address] 04/13/2023 11:31:35 04/13/20 23 04/13/2023 BMP, serum or plasm a CRE 0.5 Not Available Main - [facility] [address], [address] 04/13/2023 11:31:35 04/13/20 23 04/13/2023 BMP, serum or plasm a GLU 153 Not Available Main - [facility] [address], [address] 04/13/2023 11:31:35 04/13/20 23 04/13/2023 BMP, serum or plasm a K+ 4.4 Not Available Main - [facility] [address], [address] 04/13/2023 11:31:35 04/13/20 23 04/13/2023 BMP, serum or plasm a Na+ 135 Not Available Main - [facility] [address], [address] 04/13/2023 11:31:35 04/13/20 23 04/13/2023 BMP, serum or plasm a tCO2 24 Not Available Main - [facility] eliseo [address] [place] [address], [phone] 04/13/2023 11:31:35 04/13/20 23 04/13/2023 rapid flu (A+B) Flu negati ve Not Available [facility] ed [address] [place] [address], [phone] 04/13/2023 11:22:35 04/13/20 23 04/13/2023 rapid SARS CoV 2 Ag, QL IA, respi rator y speci men rapid SARS CoV 2 Ag, QL IA, respiratory specimen positi ve Not Available [facility] ed [address] [place] [address], [phone] 04/13/2023 11:22:24 04/21/20 23 04/21/2023 rapid flu (A+B) Flu negati ve Not Available [facility] ed [address] [place] [address], [phone] 04/21/2023 12:28:51 04/21/20 23 04/21/2023 rapid SARS CoV 2 Ag, QL IA, respi rator y speci men rapid SARS CoV 2 Ag, QL IA, respiratory specimen positi ve Not Available [facility] ed [address] [place] [address], [phone] 04/21/2023 12:28:46 06/29/20 24 06/29/2024 rapid flu (A+B) Flu negati ve Not Available [facility] ed [address] [place] [address], [phone] 06/29/2024 21:27:30 06/29/20 24 06/29/2024 rapid SARS CoV 2 Ag, QL IA, respi rator y speci men rapid SARS CoV 2 Ag, QL IA, respiratory specimen negati ve Not Available [facility] ed [address] [place] [address], [phone] 06/29/2024 21:27:26 Result Notes None recorded. Medical Equipment None Reported. Allergies Allergen ID Allergen Name Allergen Category Reaction Reaction Severity Criticality Documentation Date Start Date Code Code System Note Provider Name and Address Organization Details Recorded Time 3101 Nam[facility] medicatio n Not available Not available Not available 04/21/2023 98605 6 RxNorm Not Available [facility] - production 4 16:54:40 Medications Name Sig Start Date Stop [...] Not Available Not Available No t Available Otxyo-Br-Lcv Enema 19 gram-7 gram/118 mL USE DIRECTED [...] Not Available Not Available No t Available [facility] spacer DIRECTED active Not Available Not Available Not Available Paxlovid 300 mg (150 mg x 2)-100 mg tablets in a dose pack TAKE 3 TABLETS BY MOUTH TWICE A DAY FOR 5 DAYS active Not Available Not Available No t Available Vitals Date Recorded Heart rate Body temperature Respiratory rate Oxygen saturation Oxygen saturation in Arterial blood by Pulse oximetry Systolic blood pressure Diastolic blood pressure Provider Name and Address Organization Details Last Updated DateTime 3 87 /min 97.8 [degF] 28 /min 96 % 96 % 110 mm[Hg] 70 mm[Hg] Not Available [employer] 3 12:03:42 Date Recorded Oxygen saturation Oxygen saturation in Arterial blood by Pulse oximetry Body temperature Body height Respiratory rate Heart rate Body weight Systolic blood pressure Diastolic blood pressure Provider Name and Address Organization Details Last Updated DateTime 3 97 % 97 % 99.4 [degF] 157.48 cm 20 /min 110 /min 16937.6 4 g 154 mm[Hg] 87 mm[Hg] Not Available [facility] 3 18:51:41 Date Recorded Body weight Body temperature Heart rate Respiratory rate Oxygen saturation Oxygen saturation in Arterial blood by Pulse oximetry Systolic blood pressure Diastolic blood pressure Provider Name and Address Organization Details Last Updated DateTime 4 48328.7 2 g 98.2 [degF] 68 /min 14 /min 97 % 97 % 135 mm[Hg] 85 mm[Hg] Not Available [employer] 4 21:20:27 Date Recorded Body temperature Body weight Respiratory rate Body height Heart rate Oxygen saturation Oxygen saturation in Arterial blood by Pulse oximetry Systolic blood pressure Diastolic blood pressure Provider Name and Address Organization Details Last Updated DateTime 5 98.6 [degF] 17499.6 4 g 18 /min 157.48 cm 89 /min 96 % 96 % 170 mm[Hg] 98 mm[Hg] Not Available [facility] - production 5 20:51:20 Date Recorded Oxygen saturation Oxygen saturation in Arterial blood by Pulse oximetry Body height Heart rate Body weight Respiratory rate Body temperature Systolic blood pressure Diastolic blood pressure Provider Name and Address Organization Details Last Updated DateTime 5 98 % 98 % 162.56 cm 105 /min 38048.6 4 g 19 /min 98.6 [degF] 150 mm[Hg] 98 mm[Hg] Not Available [facility] - production 5 16:10:14 Social History None recorded. Functional Status None [...] 2015 Nile Navarro MD Main - [facility] [address] [place] [address] 02/03/2022 14:24:29 05/24/2022 11:41:07 At increased risk for falls 994463795 Z91.81 S/p fall due to side rail being down. Discussed fall risk precaution s. Head contusion with no acute neurologic al signs. Mental status at baseline per caregivers [id number] Pérez Lea MD Main - [facility] [address] [place] [address] 08/15/2022 18:26:38 08/17/2022 11:15:23 Influenza 1839951 J11.1 [id number] Maureen Mabry MD Main - [facility] [address] [place] [address] 04/13/2023 11:00:38 04/13/2023 23:28:15 COVID-19 326993236 U07.1 advised rest and to stay well-hydra eliseo. Given stated weight of 135 pounds, advised maximum Tylenol is 2400 mg a day so she can have 325 mg every 4-6 hours as neededLabs excellent may have full dose Paxlovid Acute COVID-19 [id number] 8 U07.1 We discussed the benefit of [...] covered and she is okay with that [id number] Maureen Mabry MD Main - [facility] [address] [place] [phone] 04/21/2023 12:03:40 04/22/2023 00:27:40 COVID-19 795993433 U07.1 advised rest and to try and [...] medication at the family's request for G-tube [id number] Nile Navarro MD Main - [facility] [address] [place] [phone] 04/22/2023 18:51:38 04/26/2023 10:52:19 COVID-19 533795122 U07.1 Seen for wellness check in setting of COVID diagnosis. O2 sats are stable. Will give additional duoneb now (patient doesn't have proper supplies for machine). Discussed red flag symptoms for which to seek higher level of care. [id number] JOEL VALLE MD Main - [facility] [address] [place] [address] 06/29/2024 21:20:20 06/30/2024 19:11:43 Cough 93572982 R05.9 Evaluation in the field was performed by my automotive fleet supervisor colleague, as noted above, I provided real-time [...] he exam revealed clear lungs per the automotive fleet supervisor, with no lower extremity edema.COVI D and [...] worsening mental status, or any other concerns. [id number] JOEL VALLE MD Main - [facility] [address] [place] [phone] 08/31/2024 20:51:18 09/01/2024 18:55:47 Cough 57879355 R05.9 Evaluation in the field was performed by my automotive fleet supervisor colleague, as noted above, I provided real-time [...] 98The exam revealed clear lungs per the automotive fleet supervisor, with no lower extremity edema.COVI D and flu tests not done given timing of the symptomsPa ramedic unable to obtain urine despite trying straight cath [id number] were reviewed Impression :Cough Plan:-A prescripti [...] worsening mental status, or any other concerns. [id number] Gema Jay MD Main - [address] [address] 12/14/2024 16:10:12 12/14/2024 18:25:49 Pain in left lower limb [id number] M79.605 Evaluation in the field was performed by my automotive fleet supervisor colleague, as noted above, I provided real-time direction and supervisio n for this visit.This is a 79yo F with advanced dementia p/w 2 weeks worsening LLE pain. Family denies trauma or sig falls but did have a fall that was unwitnesse d. Has tried OTCs without improvemen t VS: HR 105 rest wnlParamed ic exam: appears every uncomforta ble, screams with minimal palpation of LLE, does have palpable pulses and no skin discolorat ionPOC testing: none Impression : acute LLE pain, concern for unrecogniz ed trauma leading to fracture given pt unable to fully report history, lower suspicion for compartmen t syndrome.P chante: recommend ED for imaging, family in agreement but would like to take her there themselves which is reasonable .Red flags reviewed, pt expressed understand ing For PCP: f/up after ED visit We discussed the diagnostic uncertaint y of home visits and the risk associated with this. In this case, the patient and I felt this to be an acceptable and reasonable amount of risk given the benefit of avoiding an ED visit. We discussed the need to seek care urgently/e mergently in the setting of any new or worsening serious symptoms, shortness of breath, cough, chest pain, fever. Health Concerns Section Related Observation LastModified by Organization Detai ls LastModified Time None Recorded Concern Status LastModified by Organization Details LastModified Time None Recorded Advance Directives Directive None Recorded Payers Encounter Date Sequence Insurance Name Policy Number Policy Collins Covered Member ID Collins Member ID Guarantor Name 04/21/2023 1 [facility] - DOS ON OR AFTER 2022 - DUAL ELIGIBLE - RESIDENTIAL OPTIONS AND ONE CARE (MEDICARE REPLACEMENT/ADV ANTAGE - HMO) Rosemarie Huitron [id number] Rosemarie Huitron 04/22/2023 1 [facility] - DOS ON OR AFTER 2022 - DUAL ELIGIBLE - RESIDENTIAL OPTIONS AND ONE CARE (MEDICARE REPLACEMENT/ADV ANTAGE - HMO) Rosemarie Huitron [id number] Rosemarie Cline Tomy 06/29/2024 1 [facility] - DOS ON OR AFTER 2022 - DUAL ELIGIBLE - RESIDENTIAL OPTIONS AND ONE CARE (MEDICARE REPLACEMENT/ADV ANTAGE - HMO) Rosemarie Cline [id number] Rosemarie Cline 08/31/2024 1 [facility] - DOS ON OR AFTER 2022 - DUAL ELIGIBLE - RESIDENTIAL OPTIONS AND ONE CARE (MEDICARE REPLACEMENT/ADV ANTAGE - HMO) Rosemarie Cline Tomy [id number] Rosemarie Cline 12/14/2024 1 [facility] - DOS ON OR AFTER 2022 - DUAL ELIGIBLE - RESIDENTIAL OPTIONS AND ONE CARE (MEDICARE REPLACEMENT/ADV ANTAGE - HMO) Rosemarie Cline Tomy [id number] Rosemarie Cline Notes Date Note Type Note Provider Name and Address Organization Details Recorded Time 04/21/2023 text/html HPI: 77 yr Japanese-speaking female with c/o worsening congestion. Fever yesterday, afebrile today. COVID test negative. Denies nausea, no vomiting. Not eating much. Drinking some, had milk and some juice. Daughter requesting pt be evaluated. .................... .................... .................... .................... .................... .................... .................... . CRC Nursing Assessment: Comments: CRC RN did not require any additional information to process this visit. .................... .................... .................... .................... .................... .................... .................... . Restaurant Crew Note From Brianna Zeng: [employer] Yasir Zeng CCA1 dispatched to a surgical specialty center for a 77 yof C/O a cough. Upon arrival, the pt was lying in bed, awake and alert, combative and confused at baseline per family-daughter/insurance healthcare representative. Pt was bedbound and nonverbal at baseline. [...] after a CVA. Flu negative, covid positive. [facility] consulted; pt was given 2.5 mg albuterol [...] call the pt's PCP RADHA as well. .................... .................... .................... .................... .................... .................... .................... . Disposition: Fulfilled SEGMD: as above-Patient seen by [...] no known COVID exposure. Maureen Mabry MD [address] [facility],[address], [place], [address], [employer] - Agent Partner 04/21/2023 16:01:19 04/22/2023 text/html CRC Nursing Assessment: Chief Complaints: Shortness of Breath/Dyspnea PMH: Severe Dementia, Para or Quadraplegia, Hypertension Allergies: Unknown Comments: [employer] follow up visit: Member was seen on 04/21 - COVID positive - Family is requesting a follow up wellness check - Member is Japanese speaking - CG is Upper Sorbian speaking [facility] Remarks Patient has COVID again-can you call and check on her tomorrow please. I told the daughter a very low threshold for going to the ER but if she is still home tomorrow she may need another visit from us. Can you reach out to the child care centre manager also and let them know she has COVID again because she required an IV infusion last time because she could not take the Paxlovid pills. TY! Hannah DONOVAN .................... .................... .................... .................... .................... .................... .................... . Restaurant Crew Note From Emily Gómez: Sent to a [...] Pt was given a neb treatment during [facility] visit last night which helped her. Pt [...] unremarkable; Extremities: unremarkable; Skin: pink, warm, dry; [facility] consulted and orders Duo neb. Pt responds well to duo neb. Pt calms after duo neb. Decreased wheezing noted after duo neb. Family advised to contact [facility] tomorrow if pt requires another treatment or if condition worsens. Red flags discussed. Family has no further questions. .................... .................... .................... .................... .................... .................... .................... . Disposition: Fulfilled Nile Navarro MD [address] [place] [address],[address], [place], [address], Avinger 04/22/2023 19:39:50 06/29/2024 text/html HPI: Patient's grandson Darnell stated that the patient has had a horrible cough all day that is dry but she does sound wheezy, Darnell reported that they do have a nebulizer machine in the home but they don't know how to use it. Darnell denied fever and any other sick contacts. .................... .................... .................... .................... .................... .................... .................... . CRC Nurse Triage Notes (Lissy Harris): Chief Complaints: Cough PMH: Para or Quadriplegia, Hypertension Comments: CRC RN did not require any additional information to process this visit. Restaurant Crew Organization Information for Muriel Combs Legal Name: [facility].? Address: [address] [place], [place] [address], [place] [address], Pre Owned Sales Consultant: Salo Bang MD [facility] No.: [id number] Restaurant Crew POC Test Results from Garret Muriel - ALS Rapid COVID antigen (21:20:02) COVID: - Attachments uploaded as part of this test result can be found under Documents section. Rapid influenza antigen (21:22:14) Flu: - Attachments uploaded as part of this test result can be found under Documents section. .................... .................... .................... .................... .................... .................... .................... . Restaurant Crew Note From Muriel Combs: Disp for the [...] and Flu came back negative. Consulted with [facility] Dr. Valle of vitals and assessment stated [...] medically evaluated. Family understood. All times approx. .................... .................... .................... .................... .................... .................... .................... . [facility] Consulted: Joel Valle .................... .................... .................... .................... .................... .................... .................... . Disposition: Stacey VALLE MD [address] [place] [address],[address], [place], [address], Avinger 06/30/2024 00:34:42 08/31/2024 text/html HPI: 79yo female with PMH dementia, TBI, HTN, depression who is cared for by daughter Madeline and grandtiffany Patrick at home. Madeline and Rosemarie speak Japanese but grandtiffany speaks Upper Sorbian. Rosemarie is primarily non-verbal. Dtr called to report non-prod cough x 2 weeks without fever or SOB. Today also noted malodorous urine without hematuria. .................... .................... .................... .................... .................... .................... .................... . CRC Nurse Triage Notes (Lissy Harris - RN): Chief Complaints: Cough, Urinary symptoms PMH: Para or Quadriplegia, Hypertension, Dementia (e.g., Alzheimer's Disease), Depression Comments: CRC RN did not require any additional information to process this visit. .................... .................... .................... .................... .................... .................... .................... . Baseline Information: Baseline Hb: 13.1 g/dL Baseline HCt: 41% Baseline Creatinine: 0.6 mg/dL .................... .................... .................... .................... .................... .................... .................... . Restaurant Crew Note From Ranjith Chávez: [facility] makes pt contact. She is found laying [...] not bleeding anywhere. Pt and daughter are Japanese-speaking only. Grandson is on scene to translate. [...] color. Family consents to evaluation and tx today.[facility] obtains vital signs and assesses pt. Physical exam is unremarkable and lung sounds are clear. [facility] contacts [facility] to discuss the above and [facility] orders a straight cath for urine dipstick and culture. [facility] makes two attempts to straight cath and neither is successful. [facility] contacts [facility] and [facility] prescribes guaifenesin for pt's cough and orders albuterol treatments every four hours. [facility] informs family and recommends a call back to [facility] in the morning for a reattempt at a urinalysis. Family agrees and thanks [facility] for coming.[facility] is clear. Report completed by LUZ Chávez [id number]. .................... .................... .................... .................... .................... .................... .................... . [facility] Consulted: Joel Valle .................... .................... .................... .................... .................... .................... .................... . Disposition: Fulfilled JOEL VALLE MD [address] [place] [address],[address], [place], [phone], Avinger 09/01/2024 00:47:38 12/14/2024 text/html HPI: Patients daughter Madeline is stating that the patient is having non traumatic left leg pain with movement. Daughter is unsure if this is bone, muscular or nerve. Unsure where the pain is located on the leg. .................... .................... .................... .................... .................... .................... .................... . CRC Nurse Triage Notes (Katty Graham): Reason For Request: leg pain Chief Complaints: Extremity Pain PMH: Para or Quadriplegia, Hypertension, Dementia (e.g., Alzheimer's Disease), Depression, Stroke PMH Reviewed at 12/14/2024 11:50 Allergies Reviewed at 12/14/2024 11:50 Comments: Outreach to pt > Japanese call completed with cooker casing > She is unsure how long the pain has been there, but when she got her dressed today she noticed the pain. She is nonverbal with limited mobility due to a Stroke. she did note that the area is red and swollen. She is not on blood thinners .................... .................... .................... .................... .................... .................... .................... . Restaurant Crew Note From Sailaja Haro: Pt chief complaint today of left lower extremity pain more so located in the mid point of the femur. Pt is primary Japanese speaking as well as has dementia. All communication is given through daughter. Daughter expresses that approx 2 weeks prior to [facility] arrival at scene today the pt had a controlled slip from her shower chair. Pt was not brought into the emergency department after the fall. Daughter notes that since the fall her mother has been showing signs of significant pain such as guarding, screaming and an inability to roll to her left for brief changing. Pt has been taking already prescribed pain medication such a trazodone with what seems to be no positive effect. Today the daughter of the pt is looking to have a general assessment performed and possible treatment. Very hard to decipher if there is any level of cp, sob, no NVD noted as well as dizziness or blurred vision. Allergies noted. NOn neural focal exam, afebrile, vitals WNL for the baseline and pain level of the pt, Lungs present as clear bilaterally on auscultation. Benign abdominal assessment. Upon inspection of the lower extremities no lower extremity edema is noted. The right lower extremity presents as unremarkable. Inspection of the left lower extremity shows no signs of trauma, deformity or a fracture. Skin is of appropriate color. Area in the mid point of the femur presents as very tender on palpation. Positive csm in all extremities. GCS of 15. [facility] Gema Jay consulted. Pt and daughter informed that due to the age of the pt and without her having gone to the emergency department that it is [facility] recommendation to be seen at an ER. daughter agrees to bring her mother to the emergency department after fissioning some things for her at home. [facility] calls [facility] in advance for preparation. [facility] provider expresses red flag S&S and informs the daughter to call emergency services immediately if any present,. .................... .................... .................... .................... .................... .................... .................... . [facility] Consulted: Gema Jay .................... .................... .................... .................... .................... .................... .................... . Disposition: Fulfilled Gema Jay MD [address] [facility],[address], [place], [id number], [place] 12/14/2024 17:14:18 OBGyn Episode No OBEpisode recorded.
[2024-12-21 15:06] VITALS: RESP 25
[2024-12-21] MEDS: ondansetron HCL 4 MG/2 ML VIAL IVPUSH (15:06)
[2024-12-21] MEDS: HYDROmorphone HCl 0.5 MG/0.5 ML SYRINGE IVPUSH (15:06)
[2024-12-21 15:07] VITALS: BP 131/97; PULSE 97; RESP 20; O2SAT 96
[2024-12-21 15:41] LABS: MANUAL DIFF FLAG NO
[2024-12-21 15:43] LABS: Basophils Percent Auto 0.2 % (0-2); Eosinophils Absolute Auto 0.2 X10*3/uL (0.0-0.4); Eosinophils Percent Auto 1.7 % (0-4); Hematocrit 39.2 % (37.0-47.0); Hemoglobin 12.7 g/dl (12.0-16.0); Imm Gran Abs Auto 0.06 X10*3/uL (0.00-0.03); Imm Gran Pct Auto 0.5 % (0.0-0.4); Lymphocytes Absolute Auto 1.8 X10*3/uL (1.2-4.9); Lymphocytes Percent Auto 13.4 % (20-40); Mean Corpuscular HGB Conc 32.4 g/dl (31.0-35.0); Mean Corpuscular Hemoglobin 29.3 pg (27.0-33.0); Mean Corpuscular Volume 90.5 fL (80.0-98.0); Mean Platelet Volume 8.6 fL (9.4-12.3); Monocytes Absolute Auto 0.9 X10*3/uL (0.1-1.2); Monocytes Percent Auto 6.5 % (2-11); Neutrophils Absolute Auto 10.1 x10*3/uL (2.0-8.3); Neutrophils Percent Auto 77.7 % (45-73); Platelet Count 256 X10*3/uL (160-400); Red Blood Count 4.33 X10*6/uL (4.20-5.50); Red Cell Distribution Width 12.9 % (11.0-16.0)
[2024-12-21 15:48] LABS: INTERNATIONAL NORM RATIO 1.1 (0.9-1.1); Prothrombin Time 12.5 SEC (10.9-12.4)
[2024-12-21 16:06] LABS: Alanine Aminotransferase 23 U/L (0-31); Albumin Level 3.4 g/dL (3.5-5.0); Alkaline Phosphatase 150 U/L (39-117); Anion Gap 11 (12-20); Aspartate Amino Transferase 39 U/L (5-31); Bilirubin Direct 0.1 mg/dL (0.0-0.5); Bilirubin Total 0.4 mg/dL (0.0-1.0); Blood Urea Nitrogen 14 mg/dL (9-16); Calcium 9.4 mg/dL (8.4-10.2); Carbon Dioxide 26 mmol/L (22-29); Chloride 102 mmol/L (96-108); Creatinine Clr Calc Pharmacy 74.7; Estimated Glomerular Filt Rate > 60; Glucose Random 103 mg/dL (60-115); Potassium 4.2 mmol/L (3.3-5.1); Sodium 135 mmol/L (135-145); Total Protein 6.5 g/dL (6.5-8.0)
[2024-12-21 16:22] VITALS: BP 140/78; PULSE 87; RESP 18; TEMP 36.7; O2SAT 96
[2024-12-21 19:31] VITALS: BP 140/78; PULSE 87; RESP 18; TEMP 36.7; O2SAT 96
== END 2024-12-21 19:32 | disposition home or self-care (01) ==
PROVIDERS: Emergency Provider Emergency Medicine; PCP Internal Medicine
DX: S72.012A Unspecified intracapsular fracture of left femur, initial encounter for closed fracture (principal); S72.011A Unspecified intracapsular fracture of right femur, initial encounter for closed fracture; W18.2XXA Fall in (into) shower or empty bathtub, initial encounter; Y93.E1 Activity, personal bathing and showering; Y92.012 Bathroom of single-family (private) house as the place of occurrence of the external cause; Y99.9 Unspecified external cause status
CPT/HCPCS: 36415; 73502; 80048; 80076; 85025; 85610; 86850; 86900; 86901; 93005; 96374; 96375; 99284; 99285; J1171; J2405

== ENCOUNTER → 2024-12-21 14:06 | Outpatient (BNV) | payer OTHER, SELFPAY | PROVIDERS: Emergency Provider Emergency Medicine; PCP Internal Medicine; Visit Provider Radiology Diagnostic Radiology | DX: M25.552 Pain in left hip (principal) | CPT/HCPCS: 73502 ==

== ENCOUNTER → 2024-12-21 15:13 | Outpatient (BNV) | payer OTHER, SELFPAY | PROVIDERS: Emergency Provider Emergency Medicine; PCP Internal Medicine; Visit Provider Internal Medicine | DX: I45.6 Pre-excitation syndrome (principal); I25.2 Old myocardial infarction | CPT/HCPCS: 93010 ==